=== PATIENT | female | born 1955 | race Caucasian/White ===

== ENCOUNTER → 2017-05-13 | Outpatient (CLI) | payer BC ==
--- NOTE | 2017-05-13 09:47 | US ---
EXAMINATION TYPE: US abdomen complete DATE OF EXAM: 05/13/2017 COMPARISON: CT abdomen and pelvis October 24, 2008 CLINICAL HISTORY: R74.0 TRANSAMINITIS,R10.12 LUQ PAIN,R21 RASH. Elevated enzymes. Hx of renal cysts. GB removed 2007 EXAM MEASUREMENTS: Liver Length: 15.7 cm CHD: 0.3 cm CBD: 0.2 cm Spleen: 10.0 cm Right Kidney: 10.6 x 4.6 x 4.9 cm Left Kidney: 11.1 x 4.2 x 5.2 cm Pancreas: wnl Liver: wnl Gallbladder: Surgically absent Evidence for sonographic Thacker's sign: neg CBD: wnl CHD: wnl Spleen: wnl Right Kidney: Multiple cystic appearing lesions seen. Mid- 1.1 x 1.2 x 0.9 cm. Lower- 4.1 x 4.6 x 3 .0 cm Left Kidney: Multiple lesions seen. Mid cystic lesion = 1.6 x 1.7 x 1.7 cm. Upper pole echogenic l esion, nonvascular = 2.2 x 1.6 x 1.8 cm Upper IVC: wnl Abd Aorta: no AAA seen The liver is homogenous. The intrahepatic portion of the IVC and proximal abdominal aorta are within normal limits. There is no evidence of cholelithiasis. Common bile duct is unremarkable. The visu alized portions of the pancreas are homogenous. The spleen is unremarkable. Kidneys are symmetric a nd free of hydronephrosis. Several simple appearing cysts are redemonstrated scattered throughout bot h kidneys. Technologist towards end of study marked thinning nonspecific poorly visualized hyperechoi c area, worrisome solid mass is felt extremely unlikely on images saved. IMPRESSION: No significant new finding is seen to account for patient's symptoms.
== END | disposition home or self-care (01) ==
LOC: RADUSWWP 08:12
PROVIDERS: ATTEND Internal Medicine
DX: R10.12 Left upper quadrant pain (principal); R74.0 Nonspecific elevation of levels of transaminase and lactic acid dehydrogenase [LDH]; R21 Rash and other nonspecific skin eruption
CPT/HCPCS: 76700

== ENCOUNTER → 2017-05-27 | Outpatient (CLI) | payer BC ==
--- NOTE | 2017-05-27 13:54 | MM ---
Reason for exam: screening (asymptomatic). Last mammogram was performed 1 year and 1 month ago. History: Patient is postmenopausal. Family history of breast cancer in aunt at age 40. Took progesterone for 4 months. Taking unspecified hormones for 5 years 11 months. Physical Findings: A clinical breast exam by your physician is recommended on an annual basis and results should be correlated with mammographic findings. MG 3D Screening Mammo W/Cad Bilateral CC and MLO view(s) were taken. Prior study comparison: April 23, 2016, bilateral MG 3d screening mammo w/cad. April 21, 2015, bilateral MG screening mammo w CAD. The breast tissue is heterogeneously dense. This may lower the sensitivity of mammography. Stable benign calcifications. Focal asymmetry central upper right breast posterior third position. This finding is changed when compared with previous exams. ASSESSMENT: Incomplete: need additional imaging evaluation, BI-RAD 0 RECOMMENDATION: Special view mammogram of the right breast. If lesion persists on supplemental views, image directed ultrasound is recommended. [facility] will attempt to contact patient to return for supplemental views and ultrasound if indicated.
--- NOTE | 2017-05-28 09:23 | WWHP ---
CHIEF COMPLAINT: The patient is here for her routine gynecologic exam and mammogram. HPI: This is a 61-year-old G2, P2 with an LMP of 2009. She states it has been about 3-years since her last pelvic exam. She is without gynecologic complaints and denies any postmenopausal bleeding. PAST MEDICAL HISTORY: Hypothyroidism following partial thyroidectomy for Gail's and occasional migraine headaches. MEDICATIONS: Levoxyl 112 mcg daily, Zolmitriptan 2.5 mg p.r.n. for headaches. ALLERGIES: DOXYCYCLINE, which caused nausea and body aches. PAST SURGICAL HISTORY: Urethral sling procedure in 2010, cholecystectomy in 2008 and right lobe of the thyroid gland removed in 2000. PAST OB HISTORY: Two vaginal deliveries. PAST INSET CUTTER HISTORY: She has no history of STDs and has been menopausal since 2009. SOCIAL HISTORY: She denies tobacco and drug use and has one to two alcoholic drinks per week. 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 FAMILY HISTORY: Unremarkable. She denies family history of cancer of the breast, uterus, ovaries, and colon. REVIEW OF SYSTEMS: Weight has been stable. She denies respiratory, cardiac, or GI problems. PHYSICAL EXAM: Blood pressure 119/76, height 5 feet 3 inches, weight 125 pounds. Temperature 96.1, pulse 68. This is a well developed, well nourished white female who is alert and oriented x3 in no acute distress. HEENT is within normal limits. Neck is supple without mass or thyromegaly. Chest and lungs clear to auscultation. Heart: Regular rate and rhythm. Breasts are without mass or discharge. Axillary exam is negative for adenopathy. Back negative for CVA tenderness. Abdomen is soft, nontender without palpable masses. Pelvic exam: External genitalia reveals mild atrophy without lesions. Cervix and vagina reveals mild atrophy without lesions. There is no evidence of prolapse. The uterus is mid-position, nongravid size and nontender. There are no palpable adnexal masses or tenderness. Rectovaginal exam is negative for mass or tenderness and is negative for occult blood. Extremities are nontender. IMPRESSION: A 61-year-old menopausal female with normal gynecologic exam. PLAN: 1. PAP smear was performed. 2. Self breast examination was discussed. 3. Mammogram will be done today. 4. Osteoporosis prevention was discussed. I have recommended bone density testing since it has been about 10 years since her last one. She states she will do this next year. 5. She will return in one year. ALEXANDRU
== END ==
LOC: WWCWWP 09:41
PROVIDERS: ATTEND Obstetrics & Gynecology
DX: Z12.31 Encounter for screening mammogram for malignant neoplasm of breast (principal)
CPT/HCPCS: 77063; G0202

== ENCOUNTER → 2017-06-05 | Outpatient (CLI) | payer BC ==
--- NOTE | 2017-06-09 08:52 | MM ---
Reason for exam: additional evaluation requested from abnormal screening. Last mammogram was performed less than 1 month ago. History: Patient is postmenopausal. Family history of breast cancer in aunt at age 40. Took estrogen for 4 months. Physical Findings: Nurse did not find any significant physical abnormalities on exam. MG 3D Work Up W/Cad RT CC, MLO, ML, spot compression MLO, and spot compression CC view(s) were taken of the right breast. Prior study comparison: May 27, 2017, bilateral MG 3d screening mammo w/cad. April 23, 2016, bilateral MG 3d screening mammo w/cad. April 21, 2015, bilateral MG screening mammo w CAD. The breast tissue is heterogeneously dense. This may lower the sensitivity of mammography. The previously described findings resolve on spot compression, 3D and calcifications stable from priors. These results were verbally communicated with the patient and result sheet given to the patient on 06/05/17. ASSESSMENT: Benign, BI-RAD 2 RECOMMENDATION: Return to routine screening mammogram schedule for both breasts.
== END | disposition home or self-care (01) ==
LOC: RADMAMWWP 13:21
PROVIDERS: ATTEND Obstetrics & Gynecology
DX: R92.8 Other abnormal and inconclusive findings on diagnostic imaging of breast (principal)
CPT/HCPCS: G0206; G0279

== ENCOUNTER 2017-08-06 06:21 | Emergency (ER) | payer BC ==
[2017-08-06 06:29] VITALS: PULSE 77
[2017-08-06 07:22] LABS: Bacteria,Urine Rare /hpf; Mucus,Urine Many /hpf; Particle Count 46745; RBC,Urine >182 /hpf (0-5); Squamous Epithelial Cell,Urine 4 /hpf (0-4); WBC,Urine >182 /hpf (0-5)
[2017-08-06 07:25] LABS: Appearance,Urine Turbid (Clear); Bilirubin,Urine Negative (Negative); Glucose,Urine (UA) Negative (Negative); Ketones,Urine Negative (Negative); Leukocyte Esterase,Urine Large (Negative); Nitrite,Urine Negative (Negative); Protein,Urine 3+ (Negative); UA Billing (MACRO vs. MICRO) MICRO; Urobilinogen,Urine <2.0 mg/dL (<2.0)
[2017-08-06 07:30] LABS: Specific Gravity,Urine 1.025 (1.001-1.035)
--- NOTE | 2017-08-06 07:43 | ED ---
General Adult HPI - General Chief complaint: Urogenital Stated complaint: UTI Time Seen by Provider: 08/06/17 07:29 Source: patient, RN notes reviewed Mode of arrival: ambulatory Limitations: no limitations - History of Present Illness Initial comments: Patient is a pleasant 62-year-old female presenting to the emergency department complaining of dysuria. Onset of symptoms was yesterday morning. Symptoms seemed to improve but worsen again in the middle the night. Patient has dysuria. Patient has urinary frequency and mild suprapubic pressure. No back pain. No fever. No nausea or vomiting. - Related Data Home Medications Medication Instructions Recorded Confirmed Levothyroxine Sodium [Synthroid] 112 mcg PO DAILY 08/06/17 08/06/17 Previous Rx's Medication Instructions Recorded Sulfamethox-Tmp 800-160Mg [Bactrim 1 each PO Q12HR #20 tab 08/06/17 DS 800-160 mg] Allergies Allergy/AdvReac Type Severity Reaction Status Date / Time doxycycline Allergy Swelling Verified 08/06/17 06:30 Review of Systems ROS Statement: Those systems with pertinent positive or pertinent negative responses have been documented in the HPI. ROS Other: All systems not noted in ROS Statement are negative. Constitutional: Denies: fever, chills Eyes: Denies: eye pain ENT: Denies: ear pain Respiratory: Denies: cough Cardiovascular: Denies: chest pain Endocrine: Denies: fatigue Gastrointestinal: Denies: nausea, vomiting Genitourinary: Reports: urgency, dysuria, frequency, hematuria Musculoskeletal: Denies: back pain Skin: Denies: rash Neurological: Denies: weakness Past Medical History Past Medical History: No Reported History History of Any Multi-Drug Resistant Organisms: None Reported Past Surgical History: Cholecystectomy Additional Past Surgical History / Comment(s): bladder sling 2014, partial thyroidectomy Past Psychological History: No Psychological Hx Reported Smoking Status: Never smoker Past Alcohol Use History: Occasional Past Drug Use History: None Reported General Exam Limitations: no limitations General appearance: alert, in no apparent distress Head exam: Present: atraumatic Eye exam: Present: normal appearance, PERRL ENT exam: Present: normal oropharynx Neck exam: Present: normal inspection Respiratory exam: Present: normal lung sounds bilaterally Cardiovascular Exam: Present: regular rate, normal rhythm Expanded Peripheral pulses: 2+: Dorsalis Pedis (R), Dorsalis Pedis (L) GI/Abdominal exam: Present: soft. Absent: distended, tenderness, pulsatile mass Extremities exam: Present: normal inspection Neurological exam: Present: alert Psychiatric exam: Present: normal affect, normal mood Skin exam: Present: normal color Course Vital Signs 08/06/17 06:25 Temperature 97.6 F Pulse Rate 77 Respiratory 18 Rate Blood Pressure 142/75 O2 Sat by Pulse 97 Oximetry Medical Decision Making - Lab Data Lab Results 08/06/17 Range/Units 06:30 Urine Color Light Red Urine Appearance Turbid H (Clear) Urine pH 6.0 (5.0-8.0) Ur Specific [place] 1.025 (1.001-1.035) Urine Protein 3+ H (Negative) Urine Glucose (UA) Negative (Negative) Urine Ketones Negative (Negative) Urine Blood Large H (Negative) Urine Nitrite Negative (Negative) Urine Bilirubin Negative (Negative) Urine Urobilinogen <2.0 (<2.0) mg/dL Ur Leukocyte Esterase Large H (Negative) Urine RBC >182 H (0-5) /hpf Urine WBC >182 H (0-5) /hpf Urine WBC Clumps Many H (None) /hpf Ur Squamous Epith Cells 4 (0-4) /hpf Urine Bacteria Rare H (None) /hpf Urine Mucus Many H (None) /hpf Urine Yeast (Budding) (None) /hpf Disposition Clinical Impression: Urinary tract infection Disposition: HOME SELF-CARE Condition: Stable Instructions: Urinary Tract Infection in Women (ED) Additional Instructions: Please follow-up to primary care physician in the next couple of days for recheck. Have primary care physician check urine culture results. Return for fever, vomiting, increased pain, worsening symptoms or other concerns. Prescriptions: Sulfamethox-Tmp 800-160Mg [Bactrim DS 800-160 mg] 1 each PO Q12HR #20 tab Referrals: Jeff Sin MD [Primary Care Provider] - 1-2 days Time of Disposition: 07:42
[2017-08-06 07:50] VITALS: BP 105/71; RESP 17; TEMP 97.1
== END 2017-08-06 07:57 | disposition home or self-care (01) ==
LOC: EC 06:21
DX: N39.0 Urinary tract infection, site not specified (principal); Z90.89 Acquired absence of other organs; Z90.49 Acquired absence of other specified parts of digestive tract; Z79.899 Other long term (current) drug therapy; Z88.1 Allergy status to other antibiotic agents
CPT/HCPCS: 81001; 87086; 99283

== ENCOUNTER → 2018-04-03 | Outpatient (CLI) | payer BC ==
[2018-04-03 07:37] LABS: Basophils % (A) 0 %; Eosinophils # (A) 0.2 k/uL (0-0.7); Eosinophils % (A) 3 %; HCT 38.1 % (34.0-46.0); HGB 12.8 gm/dL (11.4-16.0); Lymphocytes # (A) 1.2 k/uL (1.0-4.8); Lymphocytes % (A) 14 %; MCH 31.6 pg (25.0-35.0); MCHC 33.6 g/dL (31.0-37.0); MCV 94.2 fL (80.0-100.0); Mean Platelet Volume 7.3; Monocytes # (A) 0.5 k/uL (0-1.0); Monocytes % (A) 5 %; Neutrophils # (A) 6.6 k/uL (1.3-7.7); Neutrophils % (A) 76 %; Platelet Count 218 k/uL (150-450); RBC 4.05 m/uL (3.80-5.40); RDW 13.1 % (11.5-15.5); WBC 8.7 k/uL (3.8-10.6)
[2018-04-03 11:53] LABS: ALT 50 U/L (9-52); AST 43 U/L (14-36); Albumin 4.1 g/dL (3.5-5.0); Alkaline Phosphatase 75 U/L (38-126); Anion Gap 11 mmol/L; Blood Urea Nitrogen 23 mg/dL (7-17); Carbon Dioxide 26 mmol/L (22-30); Chloride 107 mmol/L (98-107); Cholesterol 136 mg/dL (<200); Glucose 88 mg/dL (74-99); HDL Cholesterol 72 mg/dL (40-60); LDL Cholesterol,Calculated 41 mg/dL (0-99); Potassium 4.4 mmol/L (3.5-5.1); Sodium 144 mmol/L (137-145); Total Bilirubin 0.2 mg/dL (0.2-1.3); Total Protein 6.6 g/dL (6.3-8.2); Triglycerides 117 mg/dL (<150)
[2018-04-03 12:10] LABS: T4, Free (Free Thyroxine) 1.04 ng/dL (0.78-2.19)
== END | disposition home or self-care (01) ==
LOC: LABWHC1 06:49
PROVIDERS: ATTEND Internal Medicine
DX: Z00.00 Encounter for general adult medical examination without abnormal findings (principal); E03.9 Hypothyroidism, unspecified
CPT/HCPCS: 36415; 80053; 80061; 84439; 84443; 84481; 85025

== ENCOUNTER → 2018-07-15 | Outpatient (CLI) | payer BC ==
--- NOTE | 2018-07-17 08:39 | MM ---
Reason for exam: screening (asymptomatic). Last mammogram was performed 1 year and 1 month ago. History: Patient is postmenopausal. Family history of breast cancer in aunt at age 40. Took estrogen for 4 months. Physical Findings: A clinical breast exam by your physician is recommended on an annual basis and results should be correlated with mammographic findings. MG 3D Screening Mammo W/Cad Bilateral CC and MLO view(s) were taken. Prior study comparison: June 05, 2017, right breast MG 3d work up w/cad RT. May 27, 2017, bilateral MG 3d screening mammo w/cad. The breast tissue is heterogeneously dense. This may lower the sensitivity of mammography. Despite being worked up last year asymmetric density central posterior right MLO view continues to look more defined with 3D suggesting possible underlying nodularity. ASSESSMENT: Incomplete: need additional imaging evaluation, BI-RAD 0 RECOMMENDATION: Special view mammogram of the right breast. If lesion persists on supplemental views, image directed ultrasound is recommended. [facility] will attempt to contact patient to return for supplemental views and ultrasound if indicated.
== END | disposition home or self-care (01) ==
LOC: RADMAMWWP 13:44
PROVIDERS: ATTEND Internal Medicine
DX: Z12.31 Encounter for screening mammogram for malignant neoplasm of breast (principal)
CPT/HCPCS: 77063; 77067

== ENCOUNTER → 2018-08-03 | Outpatient (CLI) | payer BC ==
--- NOTE | 2018-08-03 12:01 | MM ---
Reason for exam: additional evaluation requested from abnormal screening. Last mammogram was performed 1 month ago. History: Patient is postmenopausal. Family history of breast cancer in aunt at age 40. Took estrogen for 4 months. Physical Findings: Nurse did not find any significant physical abnormalities on exam. MG 3D Work Up W/Cad RT Spot compression CC, spot compression MLO, and LM view(s) were taken of the right breast. Prior study comparison: July 15, 2018, bilateral MG 3d screening mammo w/cad. June 05, 2017, right breast MG 3d work up w/cad RT. There is no discrete abnormality including area of concern. Stable benign calcifications. These results were verbally communicated with the patient and result sheet given to the patient on 08/03/18. ASSESSMENT: Benign, BI-RAD 2 RECOMMENDATION: Return to routine screening mammogram schedule for both breasts.
== END | disposition home or self-care (01) ==
LOC: RADMAMWWP 10:48
PROVIDERS: ATTEND Internal Medicine
DX: R92.8 Other abnormal and inconclusive findings on diagnostic imaging of breast (principal)
CPT/HCPCS: 77061; 77065

== ENCOUNTER → 2019-01-08 | Outpatient (CLI) | payer BC ==
--- NOTE | 2019-01-08 08:30 | US ---
EXAMINATION TYPE: US kidneys/renal and bladder DATE OF EXAM: 01/08/2019 COMPARISON: US CLINICAL HISTORY: R10.32 Left lower quadrant pain. Pt states recurrent UTI's EXAM MEASUREMENTS: Right Kidney: 11.0 x 4.0 x 4.8 cm Left Kidney: 12.2 x 5.5 x 4.5 cm Right Kidney: Cyst mid/medial= 4.2 x 3.7 x 4.1 cm, seen on previous Left Kidney: Echogenic, solid lesion upper pole= 2.3 x 1.6 x 1.9 cm/ Cyst mid= 2.5 x 2.1 x 2.3 cm, lis th lesions seen on previous Bladder: wnl Bilateral Jets seen: Yes No hydronephrosis or nephrolithiasis. IMPRESSION: There is minimally mental increase in size of a 2.3 cm echogenic lesion involving the upper pole the left kidney. This appears solid. Angiomyolipoma in the differential diagnosis although other etiologi es not excluded. Correlate with CT scan recommended. Bilateral renal simple appearing cysts are stable.
== END | disposition home or self-care (01) ==
LOC: RADUSWWP 07:25
PROVIDERS: ATTEND Family Medicine
DX: N28.1 Cyst of kidney, acquired (principal); D17.71 Benign lipomatous neoplasm of kidney
CPT/HCPCS: 76770

== ENCOUNTER → 2019-08-31 | Outpatient (CLI) | payer BC ==
--- NOTE | 2019-09-01 10:37 | MM ---
Reason for exam: screening (asymptomatic). Last mammogram was performed 1 year and 1 month ago. History: Patient is postmenopausal. Family history of breast cancer in maternal aunt at age 40 and breast cancer in paternal aunt at age 40. Took estrogen for 4 months. Physical Findings: A clinical breast exam by your physician is recommended on an annual basis and results should be correlated with mammographic findings. MG 3D Screening Mammo W/Cad Bilateral CC and MLO view(s) were taken. Prior study comparison: August 03, 2018, right breast MG 3d work up w/cad RT. July 15, 2018, bilateral MG 3d screening mammo w/cad. The breast tissue is heterogeneously dense. This may lower the sensitivity of mammography. There are similar right calcifications. No suspicious abnormality. No significant changes when compared with prior studies. ASSESSMENT: Benign, BI-RAD 2 RECOMMENDATION: Routine screening mammogram of both breasts in 1 year.
== END ==
LOC: RADMAMWWP 08:10
PROVIDERS: ATTEND Family Medicine
DX: Z12.39 Encounter for other screening for malignant neoplasm of breast (principal)
CPT/HCPCS: 77063; 77067

== ENCOUNTER → 2020-06-21 | Outpatient (CLI) | payer BC | END | disposition home or self-care (01) | LOC: LABWHC1 10:08 | PROVIDERS: ATTEND Physician Assistant | DX: Z09 Encounter for follow-up examination after completed treatment for conditions other than malignant neoplasm (principal); Z87.2 Personal history of diseases of the skin and subcutaneous tissue | CPT/HCPCS: 36415; 86038 ==

== ENCOUNTER 2020-06-22 00:15 | Emergency (ER) | payer BC ==
[2020-06-22 00:23] VITALS: RESP 16
[2020-06-22] MEDS ORDERED: MORPHINE SULFATE 4 MG/ML SYRINGE IV STA (00:36)
[2020-06-22] MEDS ORDERED: ONDANSETRON 4 MG/2 ML VIAL IVP STA (00:36)
[2020-06-22] MEDS ORDERED: SODIUM CHLORIDE 0.9% 1,000 ML IV ONE (00:41)
--- NOTE | 2020-06-22 00:41 | ED ---
Abdominal Pain HPI - General Chief Complaint: Abdominal Pain Stated Complaint: Abd pain Time Seen by Provider: 06/22/20 00:21 Source: patient, EMS Mode of arrival: EMS Limitations: no limitations - History of Present Illness Initial Comments: This patient is a 64-year-old woman who presents to be evaluated for abdominal pain, nausea and vomiting. The patient states that the pain and nausea started about 12 hours ago. She relates that she had some shrimp tenisha for dinner last night and then this morning had eaten the remnants of the meal. She states that a little after that she noticed she was having umbilical cramping/burning pains. She then was having nausea and subsequently has had about 6 episodes of vomiting. With the last couple of episodes she has had some coffee-ground emesis. No bright red blood. The patient has not noted worsening or relieving factors. No change in bowel movements. No change in urination. Patient denies symptoms of anemia. There is no chest pain, dyspnea, lightheadedness, syncope, palpitations. MD Complaint: abdominal pain Onset/Timin -: hour(s) Location: periumbilical Radiation: none Severity: moderate Quality: cramping Consistency: intermittent Improves With: nothing Worsens With: nothing Associated Symptoms: nausea, vomiting, hematemesis - Related Data Home Medications Medication Instructions Recorded Confirmed Levothyroxine Sodium [Synthroid] 112 mcg PO DAILY 08/06/17 08/06/17 Multivitamins, Thera [Multivitamin 1 tab PO DAILY 08/06/17 08/06/17 (formulary)] Previous Rx's Medication Instructions Recorded Sulfamethox-Tmp 800-160Mg [Bactrim 1 each PO Q12HR #20 tab 08/06/17 DS 800-160 mg] Dicyclomine [Bentyl] 20 mg PO QID #15 tablet 06/22/20 Ondansetron Odt [Zofran ODT] 4 mg PO Q8HR PRN #10 tab 06/22/20 Allergies Allergy/AdvReac Type Severity Reaction Status Date / Time doxycycline AdvReac headache & Verified 06/22/20 00:23 vomiting Review of Systems ROS Statement: Those systems with pertinent positive or pertinent negative responses have been documented in the HPI. ROS Other: All systems not noted in ROS Statement are negative. Constitutional: Denies: fever, chills Respiratory: Denies: cough, dyspnea Cardiovascular: Denies: chest pain, palpitations, syncope Gastrointestinal: Reports: abdominal pain, nausea, vomiting, hematemesis. Denies: diarrhea, melena, hematochezia Genitourinary: Denies: dysuria, hematuria Musculoskeletal: Denies: back pain Skin: Denies: rash Neurological: Denies: headache, weakness, numbness Past Medical History Past Medical History: No Reported History History of Any Multi-Drug Resistant Organisms: None Reported Past Surgical History: Cholecystectomy Additional Past Surgical History / Comment(s): bladder sling 2014, partial thyroidectomy Past Psychological History: No Psychological Hx Reported Smoking Status: Never smoker Past Alcohol Use History: Occasional Past Drug Use History: None Reported General Exam Limitations: no limitations General appearance: alert, in no apparent distress Head exam: Present: atraumatic, normocephalic Eye exam: Present: normal appearance. Absent: scleral icterus, conjunctival injection ENT exam: Present: normal oropharynx Neck exam: Present: normal inspection Respiratory exam: Present: normal lung sounds bilaterally. Absent: respiratory distress, wheezes, rales, rhonchi, stridor Cardiovascular Exam: Present: regular rate, normal rhythm, normal heart sounds. Absent: systolic murmur, diastolic murmur, rubs, gallop GI/Abdominal exam: Present: soft, normal bowel sounds. Absent: distended, tenderness, guarding, rebound, rigid, mass, pulsatile mass, hernia Extremities exam: Present: normal inspection, normal capillary refill. Absent: pedal edema, calf tenderness Back exam: Present: normal inspection. Absent: CVA tenderness (R), CVA tenderness (L) Neurological exam: Present: alert Skin exam: Present: warm, dry, intact, normal color. Absent: rash Course Vital Signs 06/22/20 00:19 Temperature 98.0 F Pulse Rate 71 Respiratory 16 Rate Blood Pressure 129/75 O2 Sat by Pulse 99 Oximetry Medical Decision Making - Medical Decision Making On reevaluation, the patient stated that she did have an episode of diarrhea here, and noted that her symptoms were improving. The abdominal exam is benign there is no tenderness. The patient states she is feeling somewhat better she would like to go home now. No further nausea or vomiting. We did discuss the return parameters and appropriate further care and follow-up. - Lab Data Result diagrams: 06/22/20 00:40 06/22/20 00:40 Lab Results 06/22/20 06/22/20 Range/Units 00:40 00:40 WBC 13.0 H (3.8-10.6) k/uL RBC 4.56 (3.80-5.40) m/uL Hgb 14.1 (11.4-16.0) gm/dL Hct 41.9 (34.0-46.0) % MCV 91.8 (80.0-100.0) fL MCH 31.0 (25.0-35.0) pg MCHC 33.8 (31.0-37.0) g/dL RDW 12.5 (11.5-15.5) % Plt Count 223 (150-450) k/uL Neutrophils % 86 % Lymphocytes % 8 % Monocytes % 4 % Eosinophils % 1 % Basophils % 0 % Neutrophils # 11.2 H (1.3-7.7) k/uL Lymphocytes # 1.0 (1.0-4.8) k/uL Monocytes # 0.5 (0-1.0) k/uL Eosinophils # 0.2 (0-0.7) k/uL Basophils # 0.0 (0-0.2) k/uL Sodium 137 (137-145) mmol/L Potassium 4.5 (3.5-5.1) mmol/L Chloride 101 (98-107) mmol/L Carbon Dioxide 23 (22-30) mmol/L Anion Gap 13 mmol/L BUN 22 H (7-17) mg/dL Creatinine 0.58 (0.52-1.04) mg/dL Est GFR (CKD-EPI)AfAm >90 (>60 ml/min/1.73 sqM) Est GFR (CKD-EPI)NonAf >90 (>60 ml/min/1.73 sqM) Glucose 199 H (74-99) mg/dL Calcium 10.4 H (8.4-10.2) mg/dL Total Bilirubin 0.7 (0.2-1.3) mg/dL AST 56 H (14-36) U/L ALT 48 H (4-34) U/L Alkaline Phosphatase 104 (38-126) U/L Total Protein 8.4 H (6.3-8.2) g/dL Albumin 5.2 H (3.5-5.0) g/dL Amylase 104 (30-110) U/L Lipase 203 (23-300) U/L Disposition Clinical Impression: Gastroenteritis Disposition: HOME SELF-CARE Condition: Good Instructions (If sedation given, give patient instructions): Gastroenteritis (ED) Prescriptions: Dicyclomine [Bentyl] 20 mg PO QID #15 tablet Ondansetron Odt [Zofran ODT] 4 mg PO Q8HR PRN #10 tab PRN Reason: Nausea Is patient prescribed a controlled substance at d/c from ED?: No Referrals: Gomez Alcazar MD [Primary Care Provider] - 1-2 days
[2020-06-22] MEDS ORDERED: DICYCLOMINE 10 MG/ML 2 ML AMP IM STA (00:51)
[2020-06-22 00:58] LABS: Basophils % (A) 0 %; Eosinophils # (A) 0.2 k/uL (0-0.7); Eosinophils % (A) 1 %; HCT 41.9 % (34.0-46.0); HGB 14.1 gm/dL (11.4-16.0); Lymphocytes % (A) 8 %; MCHC 33.8 g/dL (31.0-37.0); MCV 91.8 fL (80.0-100.0); Mean Platelet Volume 9.4; Monocytes # (A) 0.5 k/uL (0-1.0); Monocytes % (A) 4 %; Neutrophils # (A) 11.2 k/uL (1.3-7.7); Neutrophils % (A) 86 %; Platelet Count 223 k/uL (150-450); RBC 4.56 m/uL (3.80-5.40); RDW 12.5 % (11.5-15.5)
[2020-06-22 01:27] LABS: ALT 48 U/L (4-34); African American GFR (CKD) >90 (>60 ml/min/1.73 sqM); Albumin 5.2 g/dL (3.5-5.0); Amylase 104 U/L (30-110); Anion Gap 13 mmol/L; Blood Urea Nitrogen 22 mg/dL (7-17); Calcium 10.4 mg/dL (8.4-10.2); Carbon Dioxide 23 mmol/L (22-30); Chloride 101 mmol/L (98-107); Glucose 199 mg/dL (74-99); Non-African American GFR(CKD) >90 (>60 ml/min/1.73 sqM); Sodium 137 mmol/L (137-145); Total Bilirubin 0.7 mg/dL (0.2-1.3); Total Protein 8.4 g/dL (6.3-8.2)
[2020-06-22 01:29] LABS: AST 56 U/L (14-36); Alkaline Phosphatase 104 U/L (38-126); Potassium 4.5 mmol/L (3.5-5.1)
[2020-06-22 02:33] VITALS: BP 109/68; PULSE 77; TEMP 98.7
== END 2020-06-22 02:33 | disposition home or self-care (01) ==
LOC: EC 00:15
DX: K52.9 Noninfective gastroenteritis and colitis, unspecified (principal); Z88.1 Allergy status to other antibiotic agents; Z90.49 Acquired absence of other specified parts of digestive tract
CPT/HCPCS: 99284; 96374; 96361; 36415; 80053; 82150; 83690; 85025; J2405

== ENCOUNTER → 2020-08-30 | Outpatient (CLI) | payer BC ==
--- NOTE | 2020-08-30 12:14 | CT ---
EXAMINATION TYPE: CT abdomen pelvis wo con DATE OF EXAM: 08/30/2020 HISTORY: Abdominal pain unspecified. CT DLP: 494 mGycm. Automated Exposure Control for Dose Reduction was Utilized. TECHNIQUE: CT scan of the abdomen and pelvis is performed without oral or IV contrast. COMPARISON: MRI kidney July 25, 2010 FINDINGS: Within the limitations of a non-contrast study, the following observations are made. LUNG BASES: No significant abnormality is appreciated. LIVER/GB: Gallbladder redemonstrated surgically absent. PANCREAS: Single 3 mm calcification in the distal pancreatic body. SPLEEN: No significant abnormality is seen. ADRENALS: No significant abnormality is seen. KIDNEYS: Simple appearing thin-walled cysts are redemonstrated scattered throughout both kidneys. No renal stones or hydronephrosis is evident bilaterally. BOWEL: No suspicious small or large bowel dilatation. GENITAL ORGANS: Anteverted uterus. LYMPH NODES: No greater than 1cm abdominal or pelvic lymph nodes are appreciated. OSSEOUS STRUCTURES: Straightening of spine with moderate disc space narrowing L2-L3 and L3-L4 levels. OTHER: Small fat-containing umbilical hernia. IMPRESSION: No new or acute findings are evident.
== END | disposition home or self-care (01) ==
LOC: RADCTMAIN 11:43
PROVIDERS: ATTEND Family Medicine
DX: R10.9 Unspecified abdominal pain (principal)
CPT/HCPCS: 74176

== ENCOUNTER 2020-12-12 17:08 | Inpatient (IN) | payer BC, MEDICARE ==
[2020-12-12] MEDS ORDERED: KETOROLAC 15 MG/ML 1 ML VIAL IVP STA (17:28)
[2020-12-12] MEDS ORDERED: DICYCLOMINE 10 MG/ML 2 ML AMP IM STA (17:28)
[2020-12-12 17:42] LABS: Basophils % (A) 0 %; Eosinophils # (A) 0.1 k/uL (0-0.7); Eosinophils % (A) 1 %; HCT 42.8 % (34.0-46.0); HGB 14.7 gm/dL (11.4-16.0); Lymphocytes % (A) 9 %; MCH 32.2 pg (25.0-35.0); MCHC 34.4 g/dL (31.0-37.0); MCV 93.7 fL (80.0-100.0); Monocytes # (A) 0.5 k/uL (0-1.0); Monocytes % (A) 5 %; Neutrophils # (A) 9.2 k/uL (1.3-7.7); Neutrophils % (A) 84 %; Platelet Count 176 k/uL (150-450); RBC 4.57 m/uL (3.80-5.40); WBC 10.9 k/uL (3.8-10.6)
[2020-12-12 17:52] LABS: ALT 25 U/L (4-34); AST 35 U/L (14-36); African American GFR (CKD) >90 (>60 ml/min/1.73 sqM); Albumin 4.8 g/dL (3.5-5.0); Alkaline Phosphatase 90 U/L (38-126); Anion Gap 13 mmol/L; Blood Urea Nitrogen 16 mg/dL (7-17); Calcium 9.9 mg/dL (8.4-10.2); Carbon Dioxide 21 mmol/L (22-30); Chloride 104 mmol/L (98-107); Glucose 184 mg/dL (74-99); Lipase 198 U/L (23-300); Magnesium 1.9 mg/dL (1.6-2.3); Non-African American GFR(CKD) >90 (>60 ml/min/1.73 sqM); Potassium 3.8 mmol/L (3.5-5.1); Sodium 138 mmol/L (137-145); Total Bilirubin 0.6 mg/dL (0.2-1.3); Total Protein 7.8 g/dL (6.3-8.2)
[2020-12-12 17:59] LABS: INR 0.9 (<1.2); Partial Thromboplastin Time 22.3 sec (22.0-30.0); Prothrombin Time 10.2 sec (9.0-12.0)
[2020-12-12 18:24] LABS: Appearance,Urine Clear (Clear); Bilirubin,Urine Negative (Negative); Blood,Urine Negative (Negative); Color,Urine Yellow; Glucose,Urine (UA) Negative (Negative); Ketones,Urine 4+ (Negative); Leukocyte Esterase,Urine Negative (Negative); Nitrite,Urine Negative (Negative); PH, Urine 8.5 (5.0-8.0); Protein,Urine Trace (Negative); Specific Gravity,Urine 1.018 (1.001-1.035); Urobilinogen,Urine <2.0 mg/dL (<2.0)
--- NOTE | 2020-12-12 18:42 | CT ---
EXAMINATION TYPE: CT abdomen pelvis w con DATE OF EXAM: 12/12/2020 COMPARISON: 08/22/2020. HISTORY: abdominal pain CT DLP: 535.8 mGycm Automated exposure control for dose reduction was used. TECHNIQUE: Helical acquisition of images was performed from the lung bases through the pelvis. CONTRAST: Performed without Oral Contrast and with IV Contrast, patient injected with 100 mL of Isovue 300. FINDINGS: LUNG BASES: No significant abnormality is appreciated. LIVER/GB: No acute abnormality is appreciated. Cholecystectomy is seen. PANCREAS: No significant abnormality is seen. SPLEEN: No significant abnormality is seen. ADRENALS: No significant abnormality is seen. KIDNEYS: No acute abnormality is seen. Multiple benign-appearing bilateral renal cysts with the large st measuring 4.1 cm. FREE AIR: No free air is visualized. RETROPERITONEAL ADENOPATHY: None visualized REPRODUCTIVE ORGANS: No significant abnormality is seen URINARY BLADDER: No significant abnormality is seen. PELVIC ADENOPATHY: None visualized. OSSEOUS STRUCTURES: No significant abnormality is seen. BOWEL: Multiple dilated small bowel loops throughout the abdomen. Transition point is seen in the mi d lower abdomen. No free air or fluid. No acute appendicitis OTHER: None. IMPRESSION: MODERATE TO HIGH-GRADE PARTIAL SMALL BOWEL OBSTRUCTION, POSSIBLY DUE TO ADHESION.
[2020-12-12] MEDS ORDERED: SODIUM CHLORIDE 0.9% 2,000 ML IV ONE (19:01)
[2020-12-12] MEDS ORDERED: MORPHINE SULFATE 4 MG/ML SYRINGE IV PRN (19:06)
[2020-12-12] MEDS ORDERED: NALOXONE 0.4 MG/ML 1 ML VIAL IV PRN (19:06)
[2020-12-12] MEDS ORDERED: ONDANSETRON 4 MG/2 ML VIAL IVP PRN (19:06)
[2020-12-12] MEDS ORDERED: metroNIDAZOLE-NS PMX 500 MG in SALINE 1 100ML.BAG IVPB STA (19:11)
--- NOTE | 2020-12-12 19:11 | ED ---
Abdominal Pain HPI - General Chief Complaint: Abdominal Pain Stated Complaint: ABD pain Time Seen by Provider: 12/12/20 17:15 Source: EMS Mode of arrival: EMS Limitations: no limitations - History of Present Illness Initial Comments: This is a 65-year-old female who presents emergent department for abdominal pain. She states that she was driving when it suddenly started in the middle of her abdomen. She states that it feels like a cramping sensation with some associated nausea and vomiting. She states that she's had this previously however the etiology was not determined. She denies any constipation or diarrhea. She states that she does have a history of cholecystectomy in the remote past. Denies any fevers or chills. No chest pain or trouble breathing. No other complaints. - Related Data Home Medications Medication Instructions Recorded Confirmed Levothyroxine Sodium [Synthroid] 112 mcg PO DAILY 08/06/17 08/06/17 Multivitamins, Thera [Multivitamin 1 tab PO DAILY 08/06/17 08/06/17 (formulary)] Previous Rx's Medication Instructions Recorded Sulfamethox-Tmp 800-160Mg [Bactrim 1 each PO Q12HR #20 tab 08/06/17 DS 800-160 mg] Dicyclomine [Bentyl] 20 mg PO QID #15 tablet 06/22/20 Ondansetron Odt [Zofran ODT] 4 mg PO Q8HR PRN #10 tab 06/22/20 Allergies Allergy/AdvReac Type Severity Reaction Status Date / Time doxycycline AdvReac headache & Verified 06/22/20 00:23 vomiting Review of Systems ROS Statement: Those systems with pertinent positive or pertinent negative responses have been documented in the HPI. ROS Other: All systems not noted in ROS Statement are negative. Past Medical History Past Medical History: No Reported History History of Any Multi-Drug Resistant Organisms: None Reported Past Surgical History: Cholecystectomy Additional Past Surgical History / Comment(s): bladder sling 2014, partial thyroidectomy Past Psychological History: No Psychological Hx Reported Smoking Status: Never smoker Past Alcohol Use History: Occasional Past Drug Use History: None Reported General Exam - General Exam Comments Initial Comments: Constitutional: [Awake alert] Appears uncomfortable Head: [Normocephalic atraumatic] Eyes: [no conjunctival injection] [No scleral icterus] [EOMI] Neck: [No JVD] [Supple] Heart: [Regular rate rhythm] [normal S1-S2] [no murmurs] Lungs: [Clear to auscultation bilaterally] [No wheezing] [No rales] Abdomen: [Soft] [nondistended] Tender throughout the abdomen without guarding or rebound Extremities: [Non edematous] [DP pulses intact] [Radial pulses intact] Neuro: [A&Ox3] [No focal neurologic deficits] Psych: [Appropriate mood and affect] . Limitations: no limitations Course Vital Signs 12/12/20 12/12/20 17:14 18:29 Temperature 98.0 F Pulse Rate 74 66 Respiratory 20 16 Rate Blood Pressure 125/67 118/68 O2 Sat by Pulse 100 100 Oximetry - Reevaluation(s) Reevaluation #1: EKG showing normal sinus rhythm with a rate of 73. There is no abnormal ST segment changes or T-wave inversions. QTC is 484. Other intervals normal. No ectopy. 12/12/20 19:09 Medical Decision Making - Medical Decision Making Is a 65-year-old female presents emergency department for abdominal pain. The patient was uncomfortable on arrival. She was given Bentyl and Zofran with improvement in her symptoms. Computed tomography scan showed evidence for high- grade partial small bowel obstruction. The patient has a history of cholecystectomy and was thought that this is likely due to adhesions. Patient did feel improved however I spoke with Dr. Gray who advised NG tube, antiemetics and pain medications as needed. IV antibiotics and fluids. He stated that he would see the patient tomorrow. He requested a consultation to Dr. Castro. Patient was updated on plan of care. All questions were answered. - Lab Data Result diagrams: 12/12/20 17:30 12/12/20 17:30 Lab Results 12/12/20 12/12/20 12/12/20 Range/Units 17:30 17:30 17:30 WBC 10.9 H (3.8-10.6) k/uL RBC 4.57 (3.80-5.40) m/uL Hgb 14.7 (11.4-16.0) gm/dL Hct 42.8 (34.0-46.0) % MCV 93.7 (80.0-100.0) fL MCH 32.2 (25.0-35.0) pg MCHC 34.4 (31.0-37.0) g/dL RDW 12.0 (11.5-15.5) % Plt Count 176 (150-450) k/uL MPV 9.0 Neutrophils % 84 % Lymphocytes % 9 % Monocytes % 5 % Eosinophils % 1 % Basophils % 0 % Neutrophils # 9.2 H (1.3-7.7) k/uL Lymphocytes # 1.0 (1.0-4.8) k/uL Monocytes # 0.5 (0-1.0) k/uL Eosinophils # 0.1 (0-0.7) k/uL Basophils # 0.0 (0-0.2) k/uL PT 10.2 (9.0-12.0) sec INR 0.9 (<1.2) APTT 22.3 (22.0-30.0) sec Sodium (137-145) mmol/L Potassium (3.5-5.1) mmol/L Chloride (98-107) mmol/L Carbon Dioxide (22-30) mmol/L Anion Gap mmol/L BUN (7-17) mg/dL Creatinine (0.52-1.04) mg/dL Est GFR (CKD-EPI)AfAm (>60 ml/min/1.73 sqM) Est GFR (CKD-EPI)NonAf (>60 ml/min/1.73 sqM) Glucose (74-99) mg/dL Calcium (8.4-10.2) mg/dL Magnesium (1.6-2.3) mg/dL Total Bilirubin (0.2-1.3) mg/dL AST (14-36) U/L ALT (4-34) U/L Alkaline Phosphatase (38-126) U/L Troponin I (0.000-0.034) ng/mL Total Protein (6.3-8.2) g/dL Albumin (3.5-5.0) g/dL Lipase (23-300) U/L Urine Color Yellow Urine Appearance Clear (Clear) Urine pH 8.5 H (5.0-8.0) Ur Specific [place] 1.018 (1.001-1.035) Urine Protein Trace H (Negative) Urine Glucose (UA) Negative (Negative) Urine Ketones 4+ H (Negative) Urine Blood Negative (Negative) Urine Nitrite Negative (Negative) Urine Bilirubin Negative (Negative) Urine Urobilinogen <2.0 (<2.0) mg/dL Ur Leukocyte Esterase Negative (Negative) 12/12/20 12/12/20 Range/Units 17:30 17:30 WBC (3.8-10.6) k/uL RBC (3.80-5.40) m/uL Hgb (11.4-16.0) gm/dL Hct (34.0-46.0) % MCV (80.0-100.0) fL MCH (25.0-35.0) pg MCHC (31.0-37.0) g/dL RDW (11.5-15.5) % Plt Count (150-450) k/uL MPV Neutrophils % % Lymphocytes % % Monocytes % % Eosinophils % % Basophils % % Neutrophils # (1.3-7.7) k/uL Lymphocytes # (1.0-4.8) k/uL Monocytes # (0-1.0) k/uL Eosinophils # (0-0.7) k/uL Basophils # (0-0.2) k/uL PT (9.0-12.0) sec INR (<1.2) APTT (22.0-30.0) sec Sodium 138 (137-145) mmol/L Potassium 3.8 (3.5-5.1) mmol/L Chloride 104 (98-107) mmol/L Carbon Dioxide 21 L (22-30) mmol/L Anion Gap 13 mmol/L BUN 16 (7-17) mg/dL Creatinine 0.62 (0.52-1.04) mg/dL Est GFR (CKD-EPI)AfAm >90 (>60 ml/min/1.73 sqM) Est GFR (CKD-EPI)NonAf >90 (>60 ml/min/1.73 sqM) Glucose 184 H (74-99) mg/dL Calcium 9.9 (8.4-10.2) mg/dL Magnesium 1.9 (1.6-2.3) mg/dL Total Bilirubin 0.6 (0.2-1.3) mg/dL AST 35 (14-36) U/L ALT 25 (4-34) U/L Alkaline Phosphatase 90 (38-126) U/L Troponin I <0.012 (0.000-0.034) ng/mL Total Protein 7.8 (6.3-8.2) g/dL Albumin 4.8 (3.5-5.0) g/dL Lipase 198 (23-300) U/L Urine Color Urine Appearance (Clear) Urine pH (5.0-8.0) Ur Specific [place] (1.001-1.035) Urine Protein (Negative) Urine Glucose (UA) (Negative) Urine Ketones (Negative) Urine Blood (Negative) Urine Nitrite (Negative) Urine Bilirubin (Negative) Urine Urobilinogen (<2.0) mg/dL Ur Leukocyte Esterase (Negative) Disposition Clinical Impression: SBO (small bowel obstruction) Disposition: ADMITTED IP TO THIS [facility] Condition: Stable Referrals: Nas Yi MD [Primary Care Provider] - 1-2 days
[2020-12-12] MEDS ORDERED: LORazepam 2 MG/ML INJ IV STA (19:21)
--- NOTE | 2020-12-12 21:03 | XR ---
EXAMINATION TYPE: XR chest 1V portable DATE OF EXAM: 12/12/2020 COMPARISON: NONE HISTORY: NG tube placement. TECHNIQUE: Single frontal view of the chest is obtained. FINDINGS: There is no focal air space opacity, pleural effusion, or pneumothorax seen. The cardiac silhouette size is within normal limits. The osseous structures are intact. There is redemonstratio n of an NG tube with tip overlying the gastric fundus. IMPRESSION: NG tube with tip overlying the stomach. Otherwise no acute process.
[2020-12-13] MEDS ORDERED: KETOROLAC 15 MG/ML 1 ML VIAL IVP PRN (00:28)
[2020-12-13] MEDS: LACTATED RINGERS 1,000 ML IV SCH ×3 (00:35→18:16)
[2020-12-13 08:49] LABS: Basophils % (A) 0 %; Eosinophils # (A) 0.1 k/uL (0-0.7); Eosinophils % (A) 1 %; HCT 37.2 % (34.0-46.0); HGB 12.5 gm/dL (11.4-16.0); Lymphocytes # (A) 1.2 k/uL (1.0-4.8); Lymphocytes % (A) 13 %; MCHC 33.6 g/dL (31.0-37.0); Mean Platelet Volume 8.5; Monocytes # (A) 0.7 k/uL (0-1.0); Monocytes % (A) 7 %; Neutrophils # (A) 7.6 k/uL (1.3-7.7); Neutrophils % (A) 78 %; Platelet Count 196 k/uL (150-450); RBC 3.92 m/uL (3.80-5.40); RDW 12.3 % (11.5-15.5); WBC 9.8 k/uL (3.8-10.6)
[2020-12-13 09:10] LABS: African American GFR (CKD) >90 (>60 ml/min/1.73 sqM); Anion Gap 9 mmol/L; Blood Urea Nitrogen 16 mg/dL (7-17); Calcium 8.9 mg/dL (8.4-10.2); Carbon Dioxide 26 mmol/L (22-30); Chloride 106 mmol/L (98-107); Glucose 97 mg/dL (74-99); Non-African American GFR(CKD) >90 (>60 ml/min/1.73 sqM); Potassium 3.8 mmol/L (3.5-5.1); Sodium 141 mmol/L (137-145)
--- NOTE | 2020-12-13 10:25 | P.GSHP ---
History of Present Illness H&P Date: 12/13/20 Chief Complaint: Abdominal pain, nausea vomiting This a 65-year-old female who presented to the emergency room. Patient states [place] [address] when she had severe abdominal pain nausea and vomiting. Patient was admitted to the hospital. She has a high-grade partial small bowel obstruction. Patient states that she's had 3 previous episodes of small bowel obstruction the last 6 months. Patient has previous history of laparoscopic ostectomy and endometriosis. Past Medical History Past Medical History: No Reported History History of Any Multi-Drug Resistant Organisms: None Reported Past Surgical History: Cholecystectomy Additional Past Surgical History / Comment(s): bladder sling 2013, partial thyroidectomy Past Psychological History: No Psychological Hx Reported Smoking Status: Never smoker Past Alcohol Use History: Occasional Past Drug Use History: None Reported Medications and Allergies Home Medications Medication Instructions Recorded Confirmed Type Multivitamins, Thera [Multivitamin 1 tab PO DAILY 08/06/17 12/12/20 History (formulary)] Calcium Carbonate [Calcium] 600 mg PO DAILY 12/12/20 12/12/20 History Famotidine [Pepcid] 40 mg PO DAILY 12/12/20 12/12/20 History Levothyroxine Sodium [Levoxyl] 125 mcg PO DAILY 12/12/20 12/12/20 History Loratadine [Claritin] 10 mg PO DAILY 12/12/20 12/12/20 History diphenhydrAMINE HCL [Benadryl] 25 mg PO HS 12/12/20 12/12/20 History Allergies Allergy/AdvReac Type Severity Reaction Status Date / Time doxycycline AdvReac headache & Verified 12/12/20 19:55 vomiting Surgical - Exam Vital Signs Temp Pulse Resp BP Pulse Ox 98.0 F 74 20 125/67 100 12/12/20 17:14 12/12/20 17:14 12/12/20 17:14 12/12/20 17:14 12/12/20 17:14 - General well developed, well nourished, moderate distress - Eyes PERRL - ENT normal pinna - Neck no masses - Respiratory normal expansion - Cardiovascular Rhythm: regular - Abdomen Tender throughout, no guarding Abdomen: soft, distended Results - Labs 12/13/20 08:32 12/13/20 08:32 Abnormal Lab Results - Last 24 Hours (Table) 0212/12/20 12/12/20 Range/Units 17:30 17:30 17:30 WBC 10.9 H (3.8-10.6) k/uL Neutrophils # 9.2 H (1.3-7.7) k/uL Carbon Dioxide 21 L (22-30) mmol/L Glucose 184 H (74-99) mg/dL Urine pH 8.5 H (5.0-8.0) Urine Protein Trace H (Negative) Urine Ketones 4+ H (Negative) Diabetes panel 12/12/20 12/13/20 Range/Units 17:30 08:32 Sodium 138 141 (137-145) mmol/L Potassium 3.8 3.8 (3.5-5.1) mmol/L Chloride 104 106 (98-107) mmol/L Carbon Dioxide 21 L 26 (22-30) mmol/L BUN 16 16 (7-17) mg/dL Creatinine 0.62 0.68 (0.52-1.04) mg/dL Glucose 184 H 97 (74-99) mg/dL Calcium 9.9 8.9 (8.4-10.2) mg/dL AST 35 (14-36) U/L ALT 25 (4-34) U/L Alkaline Phosphatase 90 (38-126) U/L Total Protein 7.8 (6.3-8.2) g/dL Albumin 4.8 (3.5-5.0) g/dL Calcium panel 12/12/20 12/13/20 Range/Units 17:30 08:32 Calcium 9.9 8.9 (8.4-10.2) mg/dL Albumin 4.8 (3.5-5.0) g/dL Pituitary panel 12/12/20 12/13/20 Range/Units 17:30 08:32 Sodium 138 141 (137-145) mmol/L Potassium 3.8 3.8 (3.5-5.1) mmol/L Chloride 104 106 (98-107) mmol/L Carbon Dioxide 21 L 26 (22-30) mmol/L BUN 16 16 (7-17) mg/dL Creatinine 0.62 0.68 (0.52-1.04) mg/dL Glucose 184 H 97 (74-99) mg/dL Calcium 9.9 8.9 (8.4-10.2) mg/dL Adrenal panel 12/12/20 12/13/20 Range/Units 17:30 08:32 Sodium 138 141 (137-145) mmol/L Potassium 3.8 3.8 (3.5-5.1) mmol/L Chloride 104 106 (98-107) mmol/L Carbon Dioxide 21 L 26 (22-30) mmol/L BUN 16 16 (7-17) mg/dL Creatinine 0.62 0.68 (0.52-1.04) mg/dL Glucose 184 H 97 (74-99) mg/dL Calcium 9.9 8.9 (8.4-10.2) mg/dL Total Bilirubin 0.6 (0.2-1.3) mg/dL AST 35 (14-36) U/L ALT 25 (4-34) U/L Alkaline Phosphatase 90 (38-126) U/L Total Protein 7.8 (6.3-8.2) g/dL Albumin 4.8 (3.5-5.0) g/dL - Imaging CT scan - abdomen: report reviewed (High-grade small bowel. The report reviewed by myself personally. I'm unsure if there is no internal hernia.) Assessment and Plan Assessment: High-grade small bowel traction. Patient will undergo exploratory laparotomy today.
[2020-12-13] MEDS ORDERED: IV FLUID CONTINUATION 1,000 ML IV ONE (12:02)
[2020-12-13] MEDS ORDERED: MIDAZOLAM 2 MG/2 ML VIAL IV ONE (12:31)
[2020-12-13] MEDS ORDERED: DEXAMETHASONE SOD PHOSPHATE 4 MG/ML 1 ML VIAL IV ONE (12:41)
[2020-12-13] MEDS ORDERED: ONDANSETRON 4 MG/2 ML VIAL IVP ONE (12:41)
[2020-12-13] MEDS ORDERED: PHENYLEPHRINE-0.9% NACL SYG 1,000 MCG/10 ML SYRINGE ONE (12:50)
[2020-12-13] MEDS ORDERED: fentaNYL (PF) 50 MCG/ML 2 ML AMP ONE (12:50)
[2020-12-13] MEDS ORDERED: SUCCINYLCHOLINE CHLORIDE 100 MG/5 ML SYR IV ONE (12:50)
[2020-12-13] MEDS ORDERED: MIDAZOLAM 2 MG/2 ML VIAL ONE (12:50)
[2020-12-13] MEDS ORDERED: NEOSTIGMINE 1 MG/ML 10 ML VIAL ONE (12:50)
[2020-12-13] MEDS ORDERED: ROCURONIUM 10 MG/ML (5 ML VIAL) IV ONE (12:50)
[2020-12-13] MEDS ORDERED: PROPOFOL 10 MG/ML 20 ML VIAL IV ONE (12:50)
[2020-12-13] MEDS ORDERED: GLYCOPYRROLATE 0.2 MG/ML 2 ML VIAL ONE (12:50)
[2020-12-13] MEDS ORDERED: LIDOCAINE 1% INJ 10MG/ML (20 ML MDV) ONE (12:50)
[2020-12-13] MEDS ORDERED: LACTATED RINGERS 1,000 ML IV ONE (13:17)
[2020-12-13] MEDS ORDERED: BENZOCAINE/MENTHOL LOZENG 1 EACH LOZENGE MUCOUS MEM PRN (13:43)
[2020-12-13] MEDS ORDERED: METOCLOPRAMIDE 5 MG/ML 2 ML VIAL IVP PRN (13:43)
--- NOTE | 2020-12-13 13:43 | P.OP ---
Date of Procedure: 12/13/20 Preoperative Diagnosis: Small bowel obstruction Postoperative Diagnosis: Small bowel obstruction due to closed loop obstruction Procedure(s) Performed: Small bowel resection Anesthesia: MIKKI Surgeon: Renan Long Estimated Blood Loss (ml): 5 Pathology: other (Small bowel) Condition: stable Disposition: PACU Description of Procedure: The patient's placed on the operative table in supine position. She received general anesthesia. Her abdomen was prepped and draped in usual sterile fashion. The abdomen was entered through a midline incision. Upon entering the midline the small bowel appeared to be dilated. The distal small bowel was collapsed. In the distal portion of the jejunum there appeared to be evidence of a closed loop obstruction. There was a questionable mucosal lesion at the site of obstruction which could be palpated through the bowel wall. There is also enlarged lymph node that was suspicious in the mesentery. At this point decided to perform a small bowel resection. The area the close of obstruction was transected with a GI stapler proximally distally and then using Enseal device the mesentery the bowel was divided. The suspicious lymph node was removed with the mesentery. A [id number] functional end-to-end stapled anastomosis created using MARYJO and TA staplers. 3-0 GI silk sutures used as a crotch stitch. The window in the mesentery was closed 3-0 GI silk suture. The abdomen was irrigated is no bleeding seen. There is no evidence of any further valve structure. The fascia was closed with looped #1 PDS suture. Skin was closed estela. Patient top she will was sent to recovery room stable condition.
[2020-12-13] MEDS ORDERED: HYDROmorphone 1 MG/ML 1 ML SYRINGE IVP PRN (13:44)
[2020-12-13] MEDS ORDERED: NALOXONE 0.4 MG/ML 1 ML VIAL IV PRN (13:49)
[2020-12-13] MEDS: ROPIVACAINE 250 MG, fentaNYL (PF) 625 MCG in SODIUM CHLORIDE 0.9% 188 ML EPIDURAL PRN ×2 (14:33→14:57)
[2020-12-13] MEDS: D5-0.45% NACL WITH KCL 20MEQ/L 1,000 ML IV SCH ×2 (15:56→23:35)
[2020-12-13] MEDS: HEPARIN SODIUM,PORCINE 5,000 UNIT/ML 1 ML VIAL SQ SCH ×2 (16:13→23:35)
--- NOTE | 2020-12-13 21:44 | P.CONS ---
History of Present Illness - Reason for Consult Consult date: 12/13/20 Medical management Requesting physician: Renan Long - Chief Complaint Abdominal pain, nausea vomiting - History of Present Illness This is a pleasant 65-year-old patient of Dr. Nas Yi. Patient yesterday morning was in [facility]. Developed abdominal pain progressively got worse afterward became rather severe. Started having nausea vomiting. She was drivi ng back home she pulled into a rest stop. Had to call EMS. Computed tomography scan of the abdomen did show high-grade partial small bowel obstruction. NG tube was placed. Patient was taken to the OR this afternoon by Dr. Long. The distal part of jejunum appeared to be evidence of a close to obstruction. He performed a small bowel resection. Suspicious lymph node was removed. Of [id number] functional end-to-end stapled anastomosis was carried out. Postprocedure patient has a NG tube in place. Abdominal binder. Some pain. Denies any cardiac history. 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 Occasional alcohol Family history: Reviewed, noncontributory to presentation Physical examination: VITAL SIGNS: 97.3, 57, 16, 127/80, 100% on 2 L GENERAL: BMI 20.8, laying in bed, awake. EYES: Pupils equal. Conjunctiva normal. HEENT: External appearance of nose and ears normal, oral cavity dry, NG tube to suction. NECK: JVD not raised; masses not palpable. HEART: First and second heart sounds are normal; no edema. LUNGS: Respiratory rate normal; clear to auscultation. ABDOMEN: Soft, tender, no guarding rigidity abdominal binder in place, liver spleen not palpable, no masses palpable. PSYCH: Alert and oriented x3; mood and affect normal. MUSCULAR skeletal: Evidence of OA especially in the hands NEUROLOGICAL: Cranial nerves grossly intact; no facial asymmetry, power and sensation grossly intact. LYMPHATICS: No lymph nodes palpable in the axilla and neck INVESTIGATIONS, reviewed in the clinical context: White count 10.9 hemoglobin 14.7 platelets 176 potassium 3.8 creatinine 0.62 Coronavirus [PCR]-not detected EKG tracing personally reviewed by me-sinus rhythm Chest x-ray film personally reviewed by me-lung allan clear Computed tomography scan of abdomen and pelvis- small bowel obstruction Assessment and plan: -Small bowel obstruction: The distal part of jejunum appeared to be evidence of a close to obstruction. He performed a small bowel resection. Suspicious lymph node was removed. Of [id number] functional end-to-end stapled anastomosis w as carried out. NG tube in place. Abdominal binder. -Primary osteoarthritis especially hands -Hypothyroid-was switched to Levoxyl to IV form -DVT prophylaxis and Venodyne boots Patient also has an epidural in place. IV fluids. NG tube. Subcu heparin for DVT prophylaxis. Thank you Dr. Long Past Medical History Past Medical History: No Reported History History of Any Multi-Drug Resistant Organisms: None Reported Past Surgical History: Cholecystectomy Additional Past Surgical History / Comment(s): bladder sling 2013, partial thyroidectomy Past Psychological History: No Psychological Hx Reported Smoking Status: Never smoker Past Alcohol Use History: Occasional Past Drug Use History: None Reported Medications and Allergies Home Medications Medication Instructions Recorded Confirmed Type Multivitamins, Thera [Multivitamin 1 tab PO DAILY 08/06/17 12/12/20 History (formulary)] Calcium Carbonate [Calcium] 600 mg PO DAILY 12/12/20 12/12/20 History Famotidine [Pepcid] 40 mg PO DAILY 12/12/20 12/12/20 History Levothyroxine Sodium [Levoxyl] 125 mcg PO DAILY 12/12/20 12/12/20 History Loratadine [Claritin] 10 mg PO DAILY 12/12/20 12/12/20 History diphenhydrAMINE HCL [Benadryl] 25 mg PO HS 12/12/20 12/12/20 History Allergies Allergy/AdvReac Type Severity Reaction Status Date / Time doxycycline AdvReac headache & Verified 12/12/20 19:55 vomiting morphine AdvReac HEADACHE Verified 12/13/20 11:55 Physical Exam Vitals: Vital Signs Temp Pulse Pulse Resp BP BP Pulse Ox 12/13/20 02:00 98.1 F 76 16 107/66 96 12/12/20 22:08 98.2 F 77 16 116/72 98 12/12/20 21:13 80 17 109/61 98 12/12/20 18:29 66 16 118/68 100 12/12/20 17:14 98.0 F 74 20 125/67 100 Intake and Output 12/12/20 12/13/20 12/13/20 22:59 06:59 14:59 Intake Total 1549 Output Total 620 130 Balance 929 -130 Intake: Intake, IV Titration 1549 Amount Lactated Ringers 1,000 ml 550 @ 125 mls/hr IV .Q8H AMOL Rx#:[id number] Sodium Chloride 0.9% 2, 999 000 ml @ 999 mls/hr IV . Q2H1M ONE Rx#:[id number] Output: Gastric Drainage 620 130 Other: # Voids 1 # Bowel Movements 1 Weight 56.699 kg Results CBC & Chem 7: 12/13/20 08:32 12/13/20 08:32 Labs: Abnormal Lab Results - Last 24 Hours (Table) 12/12/20 12/12/20 12/12/20 Range/Units 17:30 17:30 17:30 WBC 10.9 H (3.8-10.6) k/uL Neutrophils # 9.2 H (1.3-7.7) k/uL Carbon Dioxide 21 L (22-30) mmol/L Glucose 184 H (74-99) mg/dL Urine pH 8.5 H (5.0-8.0) Urine Protein Trace H (Negative) Urine Ketones 4+ H (Negative)
[2020-12-13 22:51] LABS: Basophils # (A) 0.04 X 10*3/uL (0.00-0.10); Basophils % (A) 0.4 %; Eosinophils # (A) 0.02 X 10*3/uL (0.04-0.35); Eosinophils % (A) 0.2 %; HCT 38.9 % (37.2-46.3); HGB 12.2 g/dL (12.0-15.0); Lymphocytes # (A) 0.79 X 10*3/uL (0.90-5.00); Lymphocytes % (A) 8.1 %; MCH 31.9 pg (27.0-32.0); MCHC 31.4 g/dL (32.0-37.0); MCV 101.8 fL (80.0-97.0); Mean Platelet Volume 12.2 fL (9.5-12.2); Monocytes % (A) 4.1 %; Neutrophils # (A) 8.43 X 10*3/uL (1.80-7.70); Neutrophils % (A) 86.9 %; Platelet Count 182 X 10*3/uL (140-440); RBC 3.82 X 10*6/uL (4.10-5.20); RDW 12.7 % (11.5-14.5); WBC 9.71 X 10*3/uL (4.50-10.00)
[2020-12-14] MEDS: LACTATED RINGERS 1,000 ML IV SCH ×3 (01:33→17:29)
[2020-12-14 01:58] LABS: African American GFR (CKD) 105.4 (60.0-200.0); Anion Gap 9.8 mmol/L (4.00-12.00); BUN/Creat Ratio 22.86 Ratio (12.00-20.00); Calcium 8.2 mg/dL (8.7-10.3); Carbon Dioxide 22.2 mmol/L (21.6-31.8); Non-African American GFR(CKD) 90.9 (60.0-200.0); Potassium 3.9 mmol/L (3.5-5.5)
--- NOTE | 2020-12-14 07:44 | P.PN ---
Progress Note - Text Progress Note Date: 12/14/20 ANESTHESIA POST OP VISIT/Pain Management Patient seen at 0715 am on 12/14/2020 She is post-op day #1 Exploratory Laparoscopy/lysis of adhesions/small bowel resection Epidural insitu and infusing at a rate of 4 ml/hr Patient reports a VAS of 6/10 but states this is tolerable. Says she is happy w ith her pain mangement. Denies any lower extremity weakness/numbness/paresthesias, fever/chills, pruritis and back pain. Epidural site dry and without erythema and tenderness Discussed with regarding increasing infusion rate of epidural solution as needed. Will continue to follow as indicated.
[2020-12-14] MEDS: D5-0.45% NACL WITH KCL 20MEQ/L 1,000 ML IV SCH ×3 (08:45→17:19)
[2020-12-14] MEDS: ALVIMOPAN 12 MG CAPSULE PO SCH ×2 (09:10→20:17)
[2020-12-14] MEDS: HEPARIN SODIUM,PORCINE 5,000 UNIT/ML 1 ML VIAL SQ SCH ×2 (09:10→15:51)
[2020-12-14 09:27] LABS: Basophils # (A) 0.1 k/uL (0-0.2); Basophils % (A) 1 %; Eosinophils # (A) 0.1 k/uL (0-0.7); Eosinophils % (A) 1 %; HCT 38.7 % (34.0-46.0); HGB 12.8 gm/dL (11.4-16.0); Lymphocytes # (A) 1.2 k/uL (1.0-4.8); Lymphocytes % (A) 13 %; MCH 32.4 pg (25.0-35.0); MCHC 33.2 g/dL (31.0-37.0); MCV 97.6 fL (80.0-100.0); Mean Platelet Volume 8.7; Monocytes # (A) 0.7 k/uL (0-1.0); Monocytes % (A) 8 %; Neutrophils % (A) 77 %; Platelet Count 171 k/uL (150-450); RBC 3.97 m/uL (3.80-5.40); RDW 12.5 % (11.5-15.5); WBC 9.1 k/uL (3.8-10.6)
[2020-12-14 09:38] LABS: African American GFR (CKD) >90 (>60 ml/min/1.73 sqM); Anion Gap 5 mmol/L; Blood Urea Nitrogen 12 mg/dL (7-17); Carbon Dioxide 26 mmol/L (22-30); Chloride 105 mmol/L (98-107); Glucose 109 mg/dL (74-99); Non-African American GFR(CKD) >90 (>60 ml/min/1.73 sqM); Potassium 4.2 mmol/L (3.5-5.1); Sodium 136 mmol/L (137-145)
--- NOTE | 2020-12-14 10:37 | P.PN ---
Subjective Progress Note Date: 12/14/20 CHIEF COMPLAINT: Small bowel obstruction HISTORY OF PRESENT ILLNESS: Patient is being followed for small bowel obstruction due to closed loop obstruction. She is postop day #1, status post small bowel resection. Patient is complaining of abdominal pain. She has epidural in place. The epidural has been increased. Patient has NG tube in place and has about 230ml output of greenish fluid. Patient does report that the NG tube is irritating her throat. She denies any nausea. Denies any flatus or BM. Afebrile. WBC 9.1 PHYSICAL EXAM: VITAL SIGNS: Reviewed. GENERAL: Well-developed in no acute distress. HEENT: No sclera icterus. Extraocular movements grossly intact. Moist buccal mucosa. Head is atraumatic, normocephalic. ABDOMEN: Soft. Distended. Incision site has minimal blood drainage noted. NEUROLOGIC: Alert and oriented. Cranial nerves II through XII grossly intact. ASSESSMENT: 1. Small bowel obstruction due to closed loop obstruction status post small bowel resection 2. Prior history of small bowel obstructions PLAN: -Keep patient nothing by mouth -Continue IV fluids -Continue epidural for pain control -Continue Dilaudid for breakthrough pain -Continue entereg -GI prophylaxis Protonix and DVT prophylaxis subcu heparin Physician Brim Shaper note has been reviewed by physician. Signing provider agrees with the documented findings, assessment, and plan of care. Objective - Vital Signs Vital signs: Vital Signs Temp 98.6 F 12/14/20 07:37 Pulse 90 12/14/20 07:37 Resp 17 12/14/20 07:37 BP 104/67 12/14/20 07:37 Pulse Ox 98 12/14/20 04:42 Intake & Output 12/13/20 12/14/20 12/14/20 18:59 06:59 18:59 Intake Total 2481 16 34.933 Output Total 455 Balance 2025 16 34.933 Intake: IV 1606 Intake, IV Titration 875 16 34.933 Amount D5-0.45% NaCl with KCl 500 20Meq/l 1,000 ml @ 125 mls/hr IV .Q8H AMOL Rx#: [id number] Lactated Ringers 1,000 ml 375 @ 125 mls/hr IV .Q8H AMOL Rx#:[id number] Ropivacaine 250 mg 16 34.933 fentaNYL (PF) 625 mcg In Sodium Chloride 0.9% 188 ml @ Per Protocol EPIDURAL .Q0M PRN Rx#: [id number] Output: Gastric Drainage 230 Urine 205 Estimated Blood Loss 20 Other: Voiding Method Toilet Indwelling Catheter # Voids 1 # Bowel Movements 1 - Labs CBC & Chem 7: 12/14/20 08:44 12/14/20 08:44 Labs: Abnormal Lab Results - Last 24 Hours (Table) 12/13/20 12/13/20 12/14/20 Range/Units 15:45 15:45 08:44 RBC 3.82 L (4.10-5.20) X 10*6/uL MCV 101.8 H (80.0-97.0) fL MCHC 31.4 L (32.0-37.0) g/dL Neutrophils # 8.43 H (1.80-7.70) X 10*3/uL Lymphocytes # 0.79 L (0.90-5.00) X 10*3/uL Eosinophils # 0.02 L (0.04-0.35) X 10*3/uL Sodium 136 L (137-145) mmol/L Chloride 111 H (96-109) mmol/L BUN/Creatinine Ratio 22.86 H (12.00-20.00) Ratio Glucose 109 H (74-99) mg/dL Calcium 8.2 L 8.0 L (8.7-10.3) mg/dL Microbiology - Last 24 Hours (Table) 12/12/20 19:13 Blood Culture - Preliminary Blood No Growth after 24 hours
[2020-12-14] MEDS ORDERED: BENZOCAINE SPRAY 1 CAN TOPICAL PRN (13:52)
[2020-12-14] MEDS: PANTOPRAZOLE 40 MG/10 ML VIAL IVP SCH (15:50)
[2020-12-14] MEDS: ROPIVACAINE 250 MG, fentaNYL (PF) 625 MCG in SODIUM CHLORIDE 0.9% 188 ML EPIDURAL PRN (17:17)
--- NOTE | 2020-12-14 22:37 | P.PN ---
Progress Note - Text Progress Note Date: 12/14/20 - Chief Complaint Abdominal pain, nausea vomiting Interval history This is a pleasant 65-year-old patient of Dr. Nas Yi. Patient yesterday morning was in [place] area. Developed abdominal pain progressively got worse afterward became rather severe. Started having nausea vomiting. She was driving back home she pulled into a rest stop. Had to call EMS. Computed tomography scan of the abdomen did show high-grade partial small bowel obstruction. NG tube was placed. Patient was taken to the OR this afternoon by Dr. Long. The distal part of jejunum appeared to be evidence of a close to obstruction. He performed a small bowel resection. Suspicious lymph node was removed. Of nzbf-[id number] functional end-to-end stapled anastomosis was carried out. Postprocedure patient has a NG tube in place. Abdominal binder. Denies any cardiac history. Today-sitting up in a chair. NG tube to suction. Abdominal binder. NG tube is really bothering her. Some abdominal discomfort. Epidural in place. No flatus. Review of systems: Was done for constitutional, cardiovascular, GI, pulmonary. relevant finding as above Active Medications Alvimopan (Alvimopan 12 Mg Capsule) 12 mg PO BID [facility] Stop: 12/20/20 21:01 Last Admin: 12/14/20 20:17 Dose: 12 mg Documented by: Benzocaine (Benzocaine [facility] 1 Can) 1 spray TOPICAL QID PRN PRN Reason: Skin Irritation Benzocaine/Menthol (Benzocaine/Menthol Lozeng 1 Each Lozenge) 1 each MUCOUS MEM Q1HR PRN PRN Reason: Sore Throat Last Admin: 12/14/20 08:34 Dose: 1 each Documented by: Heparin Sodium (Porcine) (Heparin Sodium,Porcine 5,000 Unit/Ml 1 Ml Vial) 5,000 unit SQ Q8HR [facility] Last Admin: 12/14/20 15:51 Dose: 5,000 unit Documented by: Hydromorphone HCl (Hydromorphone 1 Mg/Ml 1 Ml Syringe) 1 mg IVP Q3HR PRN PRN Reason: Pain Lactated Ringer's (Lactated Ringers) 1,000 mls @ 125 mls/hr IV .Q8H [facility] Last Admin: 12/14/20 17:29 Dose: Not Given Documented by: Potassium Chloride/Dextrose/Sod Cl (D5%-1/2ns-Kcl 20 Meq/L Iv Solution) 1,000 mls @ 125 mls/hr IV .Q8H [facility] Last Admin: 12/14/20 17:19 Dose: 125 mls/hr Documented by: Ropivacaine 250 mg/ Fentanyl Citrate 625 mcg/ Sodium Chloride 250 mls @ 0 mls/hr EPIDURAL .Q0M PRN; Protocol PRN Reason: Pain Control Last Admin: 12/14/20 17:17 Dose: 4 mls/hr Documented by: Metoclopramide HCl (Metoclopramide 5 Mg/Ml 2 Ml Vial) 10 mg IVP Q6HR PRN PRN Reason: Nausea and Vomiting Naloxone HCl (Naloxone 0.4 Mg/Ml 1 Ml Vial) 0.2 mg IV Q2M PRN PRN Reason: Opioid Reversal Naloxone HCl (Naloxone 0.4 Mg/Ml 1 Ml Vial) 0.2 mg IV Q2M PRN PRN Reason: Opioid Reversal Ondansetron HCl (Ondansetron 4 Mg/2 Ml Vial) 4 mg IVP Q8HR PRN PRN Reason: Nausea And Vomiting Pantoprazole Sodium (Pantoprazole 40 Mg/10 Ml Vial) 40 mg IVP DAILY [facility] Last Admin: 12/14/20 15:50 Dose: 40 mg Documented by: Past medical history to include: Hypothyroid, fleeting rash, arthritis in the joints 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 Occasional alcohol Family history: Reviewed, noncontributory to presentation Physical examination: VITAL SIGNS: 98.2, 62, 16, 140s over 65, 98% room air GENERAL: Sitting up in a chair, with a NG tube suction, epidural EYES: Pupils equal. Conjunctiva normal. HEENT: External appearance of nose and ears normal, oral cavity dry, NG tube to suction. NECK: JVD not raised; masses not palpable. HEART: First and second heart sounds are normal; no edema. LUNGS: Respiratory rate normal; clear to auscultation. ABDOMEN: Soft, tender, no bowel sounds, no guarding rigidity abdominal binder in place, liver spleen not palpable, no masses palpable. PSYCH: Alert and oriented x3; mood and affect normal. MUSCULAR skeletal: Evidence of OA especially in the hands INVESTIGATIONS, reviewed in the clinical context: 5 pre-11th: White count 9.1 hemoglobin 12.8 potassium 4.2 creatinine 0.56 White count 10.9 hemoglobin 14.7 platelets 176 potassium 3.8 creatinine 0.62 Coronavirus [PCR]-not detected EKG tracing personally reviewed by me-sinus rhythm Chest x-ray film personally reviewed by me-lung allan clear Computed tomography scan of abdomen and pelvis- small bowel obstruction Assessment and plan: -Small bowel obstruction: The distal part of jejunum appeared to be evidence of a close to obstruction. He performed a small bowel resection. Suspicious lymph node was removed. Of [id number] functional end-to-end stapled anastomosis was carried out. NG tube in place. Abdominal binder. -Primary osteoarthritis especially hands -Hypothyroid-was switched to Levoxyl to IV form -DVT prophylaxis and Venodyne boots Patient also has an epidural in place. IV fluids. NG tube. Subcu heparin for DVT prophylaxis. Thank you Dr. Long
[2020-12-15] MEDS: HEPARIN SODIUM,PORCINE 5,000 UNIT/ML 1 ML VIAL SQ SCH ×4 (00:43→23:12)
[2020-12-15] MEDS: LACTATED RINGERS 1,000 ML IV SCH ×2 (00:46→19:00)
[2020-12-15] MEDS: D5-0.45% NACL WITH KCL 20MEQ/L 1,000 ML IV SCH ×4 (05:14→23:13)
--- NOTE | 2020-12-15 08:28 | P.PN ---
Progress Note - Text Date: 12/15/2020 Time: 7:13 The patient is status post, exploratory lap, lysis of adhesions, postoperative day number 2. The patient has no complaints of nausea vomiting. The patient does not complain of any lower extremity numbness or weakness. The epidural is running at 5 mL per hour. VAS 2-3-10. The patient has a headache this morning. The headache is not postural. Does not seem to be related to the epidural. Treatment can be provided for this by the service. The epidural will be maintained and adjusted as needed.
[2020-12-15] MEDS: PANTOPRAZOLE 40 MG/10 ML VIAL IVP SCH (09:36)
[2020-12-15] MEDS: ACETAMINOPHEN TAB 325 MG TAB PO PRN ×3 (09:48→20:14)
[2020-12-15] MEDS: ALVIMOPAN 12 MG CAPSULE PO SCH ×2 (09:48→20:15)
--- NOTE | 2020-12-15 10:50 | P.PN ---
Subjective Progress Note Date: 12/15/20 CHIEF COMPLAINT: Small bowel obstruction HISTORY OF PRESENT ILLNESS: Patient is being followed for small bowel obstruction due to closed loop obstruction. She is postop day #2, status post small bowel resection. Patient reports that her abdominal pain is controlled with the epidural. NG tube removed last night. She denies any nausea or vomiting. She is complaining of feeling lightheaded and warm with a headache this morning. Denies any flatus or BM. She sitting up at bedside chair. Afebrile. Adequate urine output. Labs are pending PHYSICAL EXAM: VITAL SIGNS: Reviewed. GENERAL: Well-developed in no acute distress. HEENT: No sclera icterus. Extraocular movements grossly intact. Moist buccal mucosa. Head is atraumatic, normocephalic. ABDOMEN: Soft. Distended. Incision site has minimal blood drainage noted. Patient has abdominal binder NEUROLOGIC: Alert and oriented. Cranial nerves II through XII grossly intact. ASSESSMENT: 1. Small bowel obstruction due to closed loop obstruction status post small bowel resection 2. Prior history of small bowel obstructions PLAN: -Keep patient nothing by mouth -Increase IV fluids back to 125 mL per hour -Continue epidural for pain control -Continue entereg -Add Tylenol when necessary for headache -Encourage patient to increase activity and use incentive spirometer -GI prophylaxis Protonix and DVT prophylaxis subcu heparin Physician Iphone Developer note has been reviewed by physician. Signing provider agrees with the documented findings, assessment, and plan of care. Objective - Vital Signs Vital signs: Vital Signs Temp 97.6 F 12/15/20 09:33 Pulse 96 12/15/20 10:12 Resp 17 12/15/20 10:12 BP 121/78 12/15/20 09:33 Pulse Ox 94 L 12/15/20 09:33 Intake & Output 12/14/20 12/15/20 12/15/20 18:59 06:59 18:59 Intake Total 70.550 9.8 Output Total 1175 Balance 70.550 -1165.2 Intake: Intake, IV Titration 70.550 9.8 Amount Ropivacaine 250 mg 70.550 9.8 fentaNYL (PF) 625 mcg In Sodium Chloride 0.9% 188 ml @ Per Protocol EPIDURAL .Q0M PRN Rx#: [id number] Output: Urine 1175 Uretheral ([place]vey) 575 Other: Voiding Method Indwelling Catheter Indwelling Catheter Indwelling Catheter - Labs CBC & Chem 7: 12/15/20 05:52 12/14/20 08:44 Labs: Microbiology - Last 24 Hours (Table) 12/12/20 19:13 Blood Culture - Preliminary Blood No Growth after 48 hours
[2020-12-15 11:04] LABS: Basophils % (A) 0 %; Eosinophils # (A) 0.4 k/uL (0-0.7); Eosinophils % (A) 6 %; HCT 35.5 % (34.0-46.0); HGB 11.5 gm/dL (11.4-16.0); Lymphocytes % (A) 14 %; MCH 31.5 pg (25.0-35.0); MCHC 32.5 g/dL (31.0-37.0); MCV 96.7 fL (80.0-100.0); Mean Platelet Volume 9.9; Monocytes # (A) 0.5 k/uL (0-1.0); Monocytes % (A) 7 %; Neutrophils # (A) 5.5 k/uL (1.3-7.7); Neutrophils % (A) 73 %; Platelet Count 179 k/uL (150-450); RBC 3.67 m/uL (3.80-5.40); RDW 12.9 % (11.5-15.5); WBC 7.5 k/uL (3.8-10.6)
[2020-12-15 11:30] VITALS: BMI 20.7
[2020-12-15 14:27] LABS: African American GFR (CKD) 110.9 (60.0-200.0); Anion Gap 6.9 mmol/L (4.00-12.00); BUN/Creat Ratio 13.33 Ratio (12.00-20.00); Calcium 7.8 mg/dL (8.7-10.3); Carbon Dioxide 26.1 mmol/L (21.6-31.8); Non-African American GFR(CKD) 95.7 (60.0-200.0); Potassium 4.2 mmol/L (3.5-5.5)
--- NOTE | 2020-12-15 21:32 | P.PN ---
Progress Note - Text Progress Note Date: 12/15/20 - Chief Complaint Abdominal pain, nausea vomiting Interval history This is a pleasant 65-year-old patient of Dr. Nas Yi. Patient yesterday morning was in [place] area. Developed abdominal pain progressively got worse afterward became rather severe. Started having nausea vomiting. She was driving back home she pulled into a rest stop. Had to call EMS. Computed tomography scan of the abdomen did show high-grade partial small bowel obstruction. NG tube was placed. Patient was taken to the OR this afternoon by Dr. Long. The distal part of jejunum appeared to be evidence of a close to obstruction. He performed a small bowel resection. Suspicious lymph node was removed. Of [id number] functional end-to-end stapled anastomosis was carried out. Postprocedure patient has a NG tube in place. Abdominal binder. Denies any cardiac history. Today-sitting up in a chair. NG tube disconnected. On epidural. No flatus. Review of systems: Was done for constitutional, cardiovascular, GI, pulmonary. relevant finding as above Active Medications Acetaminophen (Acetaminophen Tab 325 Mg Tab) 650 mg PO Q4HR PRN PRN Reason: Fever and/ or Pain Last Admin: 12/15/20 20:14 Dose: 650 mg Documented by: Alvimopan (Alvimopan 12 Mg Capsule) 12 mg PO BID [facility] Stop: 12/20/20 21:01 Last Admin: 12/15/20 20:15 Dose: 12 mg Documented by: Benzocaine (Benzocaine [place] 1 Can) 1 spray TOPICAL QID PRN PRN Reason: Skin Irritation Benzocaine/Menthol (Benzocaine/Menthol Lozeng 1 Each Lozenge) 1 each MUCOUS MEM Q1HR PRN PRN Reason: Sore Throat Last Admin: 12/14/20 08:34 Dose: 1 each Documented by: Heparin Sodium (Porcine) (Heparin Sodium,Porcine 5,000 Unit/Ml 1 Ml Vial) 5,000 unit SQ Q8HR [facility] Last Admin: 12/15/20 15:35 Dose: 5,000 unit Documented by: Hydromorphone HCl (Hydromorphone 1 Mg/Ml 1 Ml Syringe) 1 mg IVP Q3HR PRN PRN Reason: Pain Potassium Chloride/Dextrose/Sod Cl (D5%-1/2ns-Kcl 20 Meq/L Iv Solution) 1,000 mls @ 125 mls/hr IV .Q8H [facility] Last Admin: 12/15/20 15:35 Dose: 125 mls/hr Documented by: Ropivacaine 250 mg/ Fentanyl Citrate 625 mcg/ Sodium Chloride 250 mls @ 0 mls/hr EPIDURAL .Q0M PRN; Protocol PRN Reason: Pain Control Last Infusion: 12/15/20 19:51 Dose: 1 mls/hr Documented by: Metoclopramide HCl (Metoclopramide 5 Mg/Ml 2 Ml Vial) 10 mg IVP Q6HR PRN PRN Reason: Nausea and Vomiting Naloxone HCl (Naloxone 0.4 Mg/Ml 1 Ml Vial) 0.2 mg IV Q2M PRN PRN Reason: Opioid Reversal Naloxone HCl (Naloxone 0.4 Mg/Ml 1 Ml Vial) 0.2 mg IV Q2M PRN PRN Reason: Opioid Reversal Ondansetron HCl (Ondansetron 4 Mg/2 Ml Vial) 4 mg IVP Q8HR PRN PRN Reason: Nausea And Vomiting Last Admin: 12/15/20 16:36 Dose: 4 mg Documented by: Pantoprazole Sodium (Pantoprazole 40 Mg/10 Ml Vial) 40 mg IVP DAILY [facility] Last Admin: 12/15/20 09:36 Dose: 40 mg Documented by: Past medical history to include: Hypothyroid, fleeting rash, arthritis in the joints 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 Occasional alcohol Family history: Reviewed, noncontributory to presentation Physical examination: VITAL SIGNS: 97.6, 90, 16, 122/76, 96% room air GENERAL: Sitting up in a chair, NG tube discontinued. Epidural in place EYES: Pupils equal. Conjunctiva normal. HEENT: External appearance of nose and ears normal, oral cavity dry, NG tube to suction. NECK: JVD not raised; masses not palpable. HEART: First and second heart sounds are normal; no edema. LUNGS: Respiratory rate normal; clear to auscultation. ABDOMEN: Soft, tender, no bowel sounds, no guarding rigidity abdominal binder in place, liver spleen not palpable, PSYCH: Alert and oriented x3; mood and affect normal. MUSCULAR skeletal: Evidence of OA especially in the hands INVESTIGATIONS, reviewed in the clinical context: December 15: WBC 7.5 hemoglobin 11.5 potassium 4.2 creatinine 0.6 December 14: White count 9.1 hemoglobin 12.8 potassium 4.2 creatinine 0.56 White count 10.9 hemoglobin 14.7 platelets 176 potassium 3.8 creatinine 0.62 Coronavirus [PCR]-not detected EKG tracing personally reviewed by me-sinus rhythm Chest x-ray film personally reviewed by me-lung allan clear Computed tomography scan of abdomen and pelvis- small bowel obstruction Assessment and plan: -Small bowel obstruction: The distal part of jejunum appeared to be evidence of a close to obstruction. He performed a small bowel resection. Suspicious lymph node was removed. Of [id number] functional end-to-end stapled anastomosis was carried out. NG tube discontinued. Abdominal binder. On epidural -Primary osteoarthritis especially hands -Hypothyroid-was switched to Levoxyl to IV form -DVT prophylaxis and Venodyne boots Continue IV fluids. Discussed with patient Thank you Dr. Long
[2020-12-16] MEDS: ACETAMINOPHEN TAB 325 MG TAB PO PRN ×3 (03:39→20:55)
[2020-12-16] MEDS: ALVIMOPAN 12 MG CAPSULE PO SCH ×2 (08:18→20:56)
[2020-12-16] MEDS: PANTOPRAZOLE 40 MG/10 ML VIAL IVP SCH (08:18)
[2020-12-16] MEDS: HEPARIN SODIUM,PORCINE 5,000 UNIT/ML 1 ML VIAL SQ SCH ×2 (08:21→17:08)
[2020-12-16] MEDS: D5-0.45% NACL WITH KCL 20MEQ/L 1,000 ML IV SCH ×2 (08:22→21:02)
--- NOTE | 2020-12-16 11:35 | P.PN ---
Progress Note - Text Progress Note Date: 12/16/20 Patient had a large bowel movement. She is passing gas. On exam her vital signs are stable. Abdomen soft. Status post small bowel resection. Pathology still pending. Patient will have her diet advanced to full liquid diet. She'll have her IV fluids drop to 75 mL an hour
--- NOTE | 2020-12-16 21:05 | P.PN ---
Progress Note - Text 12/16/20 0439 65-year-old female status post exploratory lap by Dr. Long. Patient has an epidural catheter and the solution has been doing off at this time. Patient has a VAS of 1 at rest, no motor or sensory deficits noted plan to DC the epidural, nurse notified
--- NOTE | 2020-12-16 22:15 | P.PN ---
Progress Note - Text Progress Note Date: 12/16/20 - Chief Complaint Abdominal pain, nausea vomiting Interval history This is a pleasant 65-year-old patient of Dr. Nas Yi. Patient yesterday morning was in [place] area. Developed abdominal pain progressively got worse afterward became rather severe. Started having nausea vomiting. She was driving back home she pulled into a rest stop. Had to call EMS. Computed tomography scan of the abdomen did show high-grade partial small bowel obstruction. NG tube was placed. Patient was taken to the OR this afternoon by Dr. Long. The distal part of jejunum appeared to be evidence of a close to obstruction. He performed a small bowel resection. Suspicious lymph node was removed. Of [id number]-hils functional end-to-end stapled anastomosis was carried out. Postprocedure patient has a NG tube in place. Abdominal binder. Denies any cardiac history. NG tube disconnected. Epidural removed. Today-patient on clear liquids. Had a bowel movement. Up in the hallway. Some abdominal pain. No nausea vomiting. Review of systems: Was done for constitutional, cardiovascular, GI, pulmonary. relevant finding as above Active Medications Acetaminophen (Acetaminophen Tab 325 Mg Tab) 650 mg PO Q4HR PRN PRN Reason: Fever and/ or Pain Last Admin: 12/16/20 20:55 Dose: 650 mg Documented by: Alvimopan (Alvimopan 12 Mg Capsule) 12 mg PO BID [facility] Stop: 12/20/20 21:01 Last Admin: 12/16/20 20:56 Dose: 12 mg Documented by: Benzocaine (Benzocaine [place] 1 Can) 1 spray TOPICAL QID PRN PRN Reason: Skin Irritation Benzocaine/Menthol (Benzocaine/Menthol Lozeng 1 Each Lozenge) 1 each MUCOUS MEM Q1HR PRN PRN Reason: Sore Throat Last Admin: 12/14/20 08:34 Dose: 1 each Documented by: Heparin Sodium (Porcine) (Heparin Sodium,Porcine 5,000 Unit/Ml 1 Ml Vial) 5,000 unit SQ Q8HR [facility] Last Admin: 12/16/20 17:08 Dose: 5,000 unit Documented by: Hydromorphone HCl (Hydromorphone 1 Mg/Ml 1 Ml Syringe) 1 mg IVP Q3HR PRN PRN Reason: Pain Last Admin: 12/16/20 21:09 Dose: 1 mg Documented by: Potassium Chloride/Dextrose/Sod Cl (D5%-1/2ns-Kcl 20 Meq/L Iv Solution) 1,000 mls @ 75 mls/hr IV .[id number] [facility] Last Admin: 12/16/20 21:02 Dose: 75 mls/hr Documented by: Ropivacaine 250 mg/ Fentanyl Citrate 625 mcg/ Sodium Chloride 250 mls @ 0 mls/hr EPIDURAL .Q0M PRN; Protocol PRN Reason: Pain Control Last Infusion: 12/15/20 19:51 Dose: 1 mls/hr Documented by: Metoclopramide HCl (Metoclopramide 5 Mg/Ml 2 Ml Vial) 10 mg IVP Q6HR PRN PRN Reason: Nausea and Vomiting Naloxone HCl (Naloxone 0.4 Mg/Ml 1 Ml Vial) 0.2 mg IV Q2M PRN PRN Reason: Opioid Reversal Ondansetron HCl (Ondansetron 4 Mg/2 Ml Vial) 4 mg IVP Q8HR PRN PRN Reason: Nausea And Vomiting Last Admin: 12/15/20 16:36 Dose: 4 mg Documented by: Pantoprazole Sodium (Pantoprazole 40 Mg/10 Ml Vial) 40 mg IVP DAILY [facility] Last Admin: 12/16/20 08:18 Dose: 40 mg Documented by: Past medical history to include: Hypothyroid, fleeting rash, arthritis in the joints 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 Conjunctiva normal. HEENT: External appearance of nose and ears normal, oral cavity dry, NG tube to suction. NECK: JVD not raised; masses not palpable. HEART: First and second heart sounds are normal; no edema. LUNGS: Respiratory rate normal; clear to auscultation. ABDOMEN: Soft, tender, no guarding rigidity abdominal binder in place, liver spleen not palpable, PSYCH: Alert and oriented x3; mood and affect normal. MUSCULAR skeletal: Evidence of OA especially in the hands INVESTIGATIONS, reviewed in the clinical context: December 15: WBC 7.5 hemoglobin 11.5 potassium 4.2 creatinine 0.6 February 11: White count 9.1 hemoglobin 12.8 potassium 4.2 creatinine 0.56 White count 10.9 hemoglobin 14.7 platelets 176 potassium 3.8 creatinine 0.62 Coronavirus [PCR]-not detected EKG tracing personally reviewed by me-sinus rhythm Chest x-ray film personally reviewed by me-lung allan clear Computed tomography scan of abdomen and pelvis- small bowel obstruction Assessment and plan: -Small bowel obstruction: The distal part of jejunum appeared to be evidence of a close to obstruction. He performed a small bowel resection. Suspicious lymph node was removed. Of [id number] functional end-to-end stapled anastomosis was carried out. NG tube discontinued. Abdominal binder. Epidural- discontinued. Had a bowel movement -Primary osteoarthritis especially hands -Hypothyroid-was switched to Levoxyl to IV form -DVT prophylaxis and Venodyne boots Continue IV fluids. Advance to full liquid as this afternoon by surgery. Discussed with the patient. Thank you Dr. Long
[2020-12-17] MEDS: HEPARIN SODIUM,PORCINE 5,000 UNIT/ML 1 ML VIAL SQ SCH ×3 (01:00→17:06)
[2020-12-17] MEDS: D5-0.45% NACL WITH KCL 20MEQ/L 1,000 ML IV SCH ×2 (01:01→13:35)
[2020-12-17] MEDS: ACETAMINOPHEN TAB 325 MG TAB PO PRN ×4 (03:38→19:49)
[2020-12-17] MEDS: PANTOPRAZOLE 40 MG/10 ML VIAL IVP SCH (08:01)
--- NOTE | 2020-12-17 12:59 | P.PN ---
Progress Note - Text Progress Note Date: 12/17/20 Patient feels better. She's had multiple bowel movements. On exam vital signs are stable. Incisions clean dry tach. Status post small bowel resection for small bowel obstruction. Patient will have her diet advanced. Despite discharged home tomorrow.
--- NOTE | 2020-12-17 21:39 | P.PN ---
Progress Note - Text Progress Note Date: 12/17/20 - Chief Complaint Abdominal pain, nausea vomiting Interval history This is a pleasant 65-year-old patient of Dr. Nas Yi. Patient yesterday morning was in [place] area. Developed abdominal pain progressively got worse afterward became rather severe. Started having nausea vomiting. She was driving back home she pulled into a rest stop. Had to call EMS. Computed tomography scan of the abdomen did show high-grade partial small bowel obstruction. NG tube was placed. Patient was taken to the OR this afternoon by Dr. Long. The distal part of jejunum appeared to be evidence of a close to obstruction. He performed a small bowel resection. Suspicious lymph node was removed. Of [id number] functional end-to-end stapled anastomosis was carried out. Postprocedure patient has a NG tube in place. Abdominal binder. Denies any cardiac history. NG tube disconnected. Epidural removed. Today-doing better. Has been up in the hallway. Advance to full liquid diet. Had a bowel movement. Pain control. Review of systems: Was done for constitutional, cardiovascular, GI, pulmonary. relevant finding as above Active Medications Acetaminophen (Acetaminophen Tab 325 Mg Tab) 650 mg PO Q4HR PRN PRN Reason: Fever and/ or Pain Last Admin: 12/17/20 19:49 Dose: 650 mg Documented by: Benzocaine (Benzocaine [place] 1 Can) 1 spray TOPICAL QID PRN PRN Reason: Skin Irritation Benzocaine/Menthol (Benzocaine/Menthol Lozeng 1 Each Lozenge) 1 each MUCOUS MEM Q1HR PRN PRN Reason: Sore Throat Last Admin: 12/14/20 08:34 Dose: 1 each Documented by: Heparin Sodium (Porcine) (Heparin Sodium,Porcine 5,000 Unit/Ml 1 Ml Vial) 5,000 unit SQ Q8HR [facility] Last Admin: 12/17/20 17:06 Dose: 5,000 unit Documented by: Hydromorphone HCl (Hydromorphone 1 Mg/Ml 1 Ml Syringe) 1 mg IVP Q3HR PRN PRN Reason: Pain Last Admin: 12/16/20 21:09 Dose: 0.5 mg Documented by: Potassium Chloride/Dextrose/Sod Cl (D5%-1/2ns-Kcl 20 Meq/L Iv Solution) 1,000 mls @ 75 mls/hr IV [id number] Last Admin: 12/17/20 13:35 Dose: 75 mls/hr Documented by: Ropivacaine 250 mg/ Fentanyl Citrate 625 mcg/ Sodium Chloride 250 mls @ 0 mls/hr EPIDURAL .Q0M PRN; Protocol PRN Reason: Pain Control Last Infusion: 12/15/20 19:51 Dose: 1 mls/hr Documented by: Metoclopramide HCl (Metoclopramide 5 Mg/Ml 2 Ml Vial) 10 mg IVP Q6HR PRN PRN Reason: Nausea and Vomiting Naloxone HCl (Naloxone 0.4 Mg/Ml 1 Ml Vial) 0.2 mg IV Q2M PRN PRN Reason: Opioid Reversal Ondansetron HCl (Ondansetron 4 Mg/2 Ml Vial) 4 mg IVP Q8HR PRN PRN Reason: Nausea And Vomiting Last Admin: 12/15/20 16:36 Dose: 4 mg Documented by: Pantoprazole Sodium (Pantoprazole 40 Mg/10 Ml Vial) 40 mg IVP [facility]ILY [facility] Last Admin: 12/17/20 08:01 Dose: 40 mg Documented by: Past medical history to include: Hypothyroid, fleeting rash, arthritis in the joints 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 Conjunctiva normal. HEENT: External appearance of nose and ears normal, oral cavity dry, NG tube to suction. NECK: JVD not raised; masses not palpable. HEART: First and second heart sounds are normal; no edema. LUNGS: Respiratory rate normal; clear to auscultation. ABDOMEN: Soft, tender, no guarding rigidity abdominal binder in place, liver spleen not palpable, PSYCH: Alert and oriented x3; mood and affect normal. MUSCULAR skeletal: Evidence of OA especially in the hands INVESTIGATIONS, reviewed in the clinical context: December 15: WBC 7.5 hemoglobin 11.5 potassium 4.2 creatinine 0.6 December 14: White count 9.1 hemoglobin 12.8 potassium 4.2 creatinine 0.56 White count 10.9 hemoglobin 14.7 platelets 176 potassium 3.8 creatinine 0.62 Coronavirus [PCR]-not detected EKG tracing personally reviewed by me-sinus rhythm Chest x-ray film personally reviewed by me-lung allan clear Computed tomography scan of abdomen and pelvis- small bowel obstruction Assessment and plan: -Small bowel obstruction: The distal part of jejunum appeared to be evidence of a close to obstruction. He performed a small bowel resection. Suspicious lymph node was removed. Of sqzd-wq-gkaw functional end-to-end stapled anastomosis was carried out. NG tube discontinued. Abdominal binder. Epidural- discontinued. Had a bowel movement. Diet advanced as per surgery to regular this evening -Primary osteoarthritis especially hands -Hypothyroid: Continue Synthroid -DVT prophylaxis and Venodyne boots Stop IV fluids. Diet advanced to regular this evening by Dr. Long. Discussed with patient Thank you Dr. Long
[2020-12-18] MEDS: HEPARIN SODIUM,PORCINE 5,000 UNIT/ML 1 ML VIAL SQ SCH ×2 (00:22→08:40)
[2020-12-18] MEDS: ACETAMINOPHEN TAB 325 MG TAB PO PRN ×3 (01:57→12:57)
[2020-12-18 05:10] VITALS: TEMP 98.3
[2020-12-18] MEDS ORDERED: LEVOTHYROXINE 50 MCG TAB PO SCH (06:30)
[2020-12-18] MEDS ORDERED: FAMOTIDINE 20 MG TAB PO SCH (09:00)
[2020-12-18] MEDS ORDERED: CALCIUM CARBONATE 500 MG CHEWABLE PO SCH (09:00)
[2020-12-18] MEDS ORDERED: MULTIVITAMINS, THERA 1 EACH TAB PO SCH (09:00)
[2020-12-18 12:27] VITALS: BP 143/78; PULSE 70; RESP 17
--- NOTE | 2020-12-18 13:14 | P.DS ---
Providers Date of admission: 12/12/20 19:08 Expected date of discharge: 12/18/20 Attending physician: Renan Long Consults: 12/12/20 19:07 Consult Physician Routine Consulting Provider: Ryan Best Consult Reason/Comments: SBO - medical management Do you want consulting provider notified?: Yes Primary care physician: Nas [facility] Course: Discharge diagnosis 1. Small bowel obstruction due to closed loop obstruction status post small bowel resection 2. Prior history of small bowel obstructions Hospital course This is a 65-year-old female who presented to the emergency room. Patient [place] [address] when she had severe abdominal pain nausea and vomiting. Patient was admitted to the hospital. She has a high-grade partial small bowel obstruction. Patient states that she's had 3 previous episodes of small bowel obstruction the last 6 months. Patient had a small bowel obstruction due to closed loop obstruction status post small bowel resection. She tolerated surgery well. Her pain is controlled. She is tolerating diet. She is having bowel movements. She is ambulating. She is afebrile. She is stable for discharge. Please refer to chart for any further details. [employer] Supervisor note has been reviewed by physician. Signing provider agrees with the documented findings, assessment, and plan of care. Patient Condition at Discharge: Stable Plan - Discharge Summary New Discharge Prescriptions: New Acetaminophen Tab [Tylenol Tab] 650 mg PO Q4H PRN #30 tablet PRN Reason: Pain Continue Multivitamins, Thera [Multivitamin (formulary)] 1 tab PO DAILY diphenhydrAMINE HCL [Benadryl] 25 mg PO HS Loratadine [Claritin] 10 mg PO DAILY Famotidine [Pepcid] 40 mg PO DAILY Levothyroxine Sodium [Levoxyl] 125 mcg PO DAILY Calcium Carbonate [Calcium] 600 mg PO DAILY Discharge Medication List Multivitamins, Thera [Multivitamin (formulary)] 1 tab PO DAILY 08/06/17 [History] Calcium Carbonate [Calcium] 600 mg PO DAILY 12/12/20 [History] Famotidine [Pepcid] 40 mg PO DAILY 12/12/20 [History] Levothyroxine Sodium [Levoxyl] 125 mcg PO DAILY 12/12/20 [History] Loratadine [Claritin] 10 mg PO DAILY 12/12/20 [History] diphenhydrAMINE HCL [Benadryl] 25 mg PO HS 12/12/20 [History] Acetaminophen Tab [Tylenol Tab] 650 mg PO Q4H PRN #30 tablet 12/18/20 [Rx] Follow up Appointment(s)/Referral(s): Nas Yi MD [Primary Care Provider] - 1-2 days Renan Long MD [STAFF PHYSICIAN] - 1 Week Activity/Diet/Wound Care/Special Instructions: No lifting over 10 pounds You may shower. No soaking or tub baths for 2 weeks Very light activity until you are reevaluated at your follow up appointment with your surgeon Discharge Disposition: HOME SELF-CARE
--- NOTE | 2020-12-20 09:22 | CDI ---
Documentation Clarification Form Date: 12/20/2020 09:08:00 AM From: Tasia Machuca Phone: If you have a question about this query, please contact Dinorah Dwyer Director Employee Safety And Health at [phone] between 8am and 5pm. Admit Date: 12/12/2020 07:08:00 PM Patient Name: Petra Tony Visit Number: [id number] Discharge Date: 12/18/2020 03:07:00 PM ATTENTION: The Clinical Documentation Specialists (CDI) and [facility] Coding Staff appreciate your assistance in clarifying documentation. Please respond to the clarification below the line at the bottom and electronically sign. The CDI & [facility] Coding staff will review the response and follow-up if needed. Please note: Queries are made part of the Legal Health Record. If you have any questions, please contact the author of this message via ITS. Dr. 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 Please clarify if you agree with pathology. Documentation states: Partial SBO Patient history/risk factors: recurrent bowel obstructions Clinical Indicators: Treatment: excision of ileum and jejunum. In your professional opinion, do you agree with the pathology report specifying neuroendocrine tumor carcinoid tumor mets to 1 lymph node? Yes No Other (please specify) Unable to determine I agree MTDD
== END 2020-12-18 15:07 | disposition home or self-care (01) | DRG 330 ==
LOC: EC 17:08 → 5NMEDONC 19:08
PROVIDERS: ADMIT Surgery; ATTEND Surgery
PROC: 0D9670Z Drainage of Stomach with Drainage Device, Via Natural or Artificial Opening (ICD-10-PCS; principal; 2020-12-13 11:00)
PROC: 0DBA0ZZ Excision of Jejunum, Open Approach (ICD-10-PCS; principal; 2020-12-13 11:00)
PROC: 07BB0ZX Excision of Mesenteric Lymphatic, Open Approach, Diagnostic (ICD-10-PCS; principal; 2020-12-13 11:00)
PROC: 0DBB0ZZ Excision of Ileum, Open Approach (ICD-10-PCS; principal; 2020-12-13 11:00)
DX: C7A.011 Malignant carcinoid tumor of the jejunum (principal); C7B.01 Secondary carcinoid tumors of distant lymph nodes; K56.690 Other partial intestinal obstruction; E89.0 Postprocedural hypothyroidism; Z20.822 Contact with and (suspected) exposure to COVID-19; Z90.49 Acquired absence of other specified parts of digestive tract; Z88.1 Allergy status to other antibiotic agents; Z88.5 Allergy status to narcotic agent; M19.042 Primary osteoarthritis, left hand; M19.041 Primary osteoarthritis, right hand; Z79.899 Other long term (current) drug therapy; Z79.890 Hormone replacement therapy
CPT/HCPCS: 36415; 71045; 74177; 80048; 80053; 81003; 83690; 83735; 84484; 85025; 85610; 85730; 87040; 87635; 88309; 88341; 88342; 93005; 96365; 96367; 96372; 96375; 99285

== ENCOUNTER → 2020-12-22 | Outpatient (CLI) | payer BC, MEDICARE ==
[2020-12-22 20:28] LABS: African American GFR (CKD) 110.9 (60.0-200.0); Albumin 4.2 g/dL (3.80-4.90); Anion Gap 6.6 mmol/L (4.00-12.00); BUN/Creat Ratio 21.67 Ratio (12.00-20.00); Calcium 8.5 mg/dL (8.7-10.3); Carbon Dioxide 27.4 mmol/L (21.6-31.8); Globulin 2.1 g/dL (1.6-3.3); Non-African American GFR(CKD) 95.7 (60.0-200.0); Total Bilirubin 0.3 mg/dL (0.3-1.2); Total Protein 6.3 g/dL (6.2-8.2)
[2020-12-22 21:42] LABS: Basophils # (A) 0.05 X 10*3/uL (0.00-0.10); Basophils % (A) 0.6 %; Eosinophils # (A) 0.28 X 10*3/uL (0.04-0.35); Eosinophils % (A) 3.2 %; HGB 11.5 g/dL (12.0-15.0); Lymphocytes # (A) 1.46 X 10*3/uL (0.90-5.00); Lymphocytes % (A) 16.5 %; MCH 31.8 pg (27.0-32.0); MCHC 31.9 g/dL (32.0-37.0); MCV 99.4 fL (80.0-97.0); Mean Platelet Volume 10.7 fL (9.5-12.2); Monocytes # (A) 0.65 X 10*3/uL (0.20-1.00); Monocytes % (A) 7.4 %; Neutrophils # (A) 6.37 X 10*3/uL (1.80-7.70); Platelet Count 395 X 10*3/uL (140-440); RBC 3.62 X 10*6/uL (4.10-5.20); RDW 13.1 % (11.5-14.5); WBC 8.84 X 10*3/uL (4.50-10.00)
[2020-12-22 23:04] LABS: Erythrocyte Sedimentation Rate 35 mm/Hr (0-30)
== END | disposition home or self-care (01) ==
LOC: LABWHC1 14:17
PROVIDERS: ATTEND Family Medicine
DX: K56.609 Unspecified intestinal obstruction, unspecified as to partial versus complete obstruction (principal)
CPT/HCPCS: 36415; 80053; 85025; 85652

== ENCOUNTER → 2021-02-19 | Outpatient (CLI) | payer BC ==
--- NOTE | 2021-02-20 08:50 | MM ---
Reason for exam: screening (asymptomatic). Last mammogram was performed 1 year and 6 months ago. History: Patient is postmenopausal. Family history of breast cancer in maternal aunt at age 40 and breast cancer in paternal aunt at age 40. Took estrogen for 4 months. Physical Findings: A clinical breast exam by your physician is recommended on an annual basis and results should be correlated with mammographic findings. MG 3D Screening Mammo W/Cad Bilateral CC and MLO view(s) were taken. Prior study comparison: August 31, 2019, bilateral MG 3d screening mammo w/cad. August 03, 2018, right breast MG 3d work up w/cad RT. The breast tissue is heterogeneously dense. This may lower the sensitivity of mammography. There are benign appearing round calcifications bilaterally. There is no discrete abnormality. ASSESSMENT: Benign, BI-RAD 2 RECOMMENDATION: Routine screening mammogram of both breasts in 1 year.
== END | disposition home or self-care (01) ==
LOC: RADMAMWWP 11:05
PROVIDERS: ATTEND Family Medicine
DX: Z12.31 Encounter for screening mammogram for malignant neoplasm of breast (principal); Z78.0 Asymptomatic menopausal state; Z80.3 Family history of malignant neoplasm of breast
CPT/HCPCS: 77063; 77067

== ENCOUNTER → 2021-02-21 | Outpatient (CLI) | payer BC ==
--- NOTE | 2021-02-21 10:05 | US ---
EXAMINATION TYPE: US kidneys/renal and bladder DATE OF EXAM: 02/21/2021 COMPARISON: US & CT CLINICAL HISTORY: D41.02 Left renal mass. F/U left renal mass EXAM MEASUREMENTS: Right Kidney: 9.5 x 3.9 x 4.7 cm Left Kidney: 11.6 x 5.1 x 4.1 cm Right Kidney: Cyst= 3.6 x 3.7 x 3.9 cm slightly smaller in size when compared to prev Left Kidney: Echogenic, solid lesion upper pole= 2.2 x 1.7 x 2.2 cm slightly increased in size when c ompared to prev/ Cyst= 2.3 x 2.2 x 2.5 cm similar in size when compared to prev Bladder: wnl Bilateral Jets seen: Yes There is no evidence for hydronephrosis at this point in time. No nephrolithiasis is seen. The urin anne marie bladder is anechoic. Bilateral ureteral jets are seen. IMPRESSION: Enlarging solid lesion upper pole left kidney. CT is recommended for further evaluation.
== END | disposition home or self-care (01) ==
LOC: RADUSWWP 09:27
PROVIDERS: ATTEND Urology
DX: N28.9 Disorder of kidney and ureter, unspecified (principal)
CPT/HCPCS: 76770

== ENCOUNTER → 2022-04-03 | Outpatient (CLI) | payer BC ==
--- NOTE | 2022-04-04 11:29 | MM ---
Reason for Exam: Screening (asymptomatic). Last mammogram was performed 1 year(s) and 2 month(s) ago. Patient History: Menarche at age 14. First Full-Term at age 26. Postmenopausal. Estrogen for 4 months. Paternal aunt had breast cancer, age 40. Maternal aunt had breast cancer, age 40. Risk Values: Guerita 5 year model risk: 1.7%. NCI Lifetime model risk: 6.1%. Prior Study Comparison: 08/03/2018 Right Diagnostic Mammogram, [facility]. 08/31/2019 Bilateral Screening Mammogram, [facility]. 02/19/2021 Bilateral Screening Mammogram, [facility]. Tissue Density: The breast tissue is heterogeneously dense. This may lower the sensitivity of mammography. Findings: Analyzed By CAD. No significant changes when compared with prior studies. Stable loosely grouped calcifications central posterior right breast. Overall Assessment: Negative, BI-RAD 1 Management: Screening Mammogram of both breasts in 1 year. Patient should continue monthly self breast exams. This exam should not preclude additional followup of suspicious palpable abnormalities. Electronically signed and approved by: Luis Beck M.D. Radiologist
== END | disposition home or self-care (01) ==
LOC: RADMAMWWP 10:58
PROVIDERS: ATTEND Family Medicine
DX: Z12.31 Encounter for screening mammogram for malignant neoplasm of breast (principal); Z78.0 Asymptomatic menopausal state; Z80.3 Family history of malignant neoplasm of breast
CPT/HCPCS: 77063; 77067

== ENCOUNTER → 2023-05-13 | Outpatient (CLI) | payer BC ==
[2023-05-13 14:05] VITALS: BP 136/77; PULSE 69; RESP 16; TEMP 97.8
--- NOTE | 2023-05-13 15:04 | P.HPOB ---
History of Present Illness H&P Date: 05/13/23 Chief Complaint: The patient is here for her routine gynecologic exam and ma mmogram. This is a 67-year-old with an LMP of 2009. She is here to reestablish with this office. She was last seen here on 05/27/2017. She is without gynecologic complaints and denies any postmenopausal bleeding. Review of Systems The patient's weight has been stable over the last year. She denies respiratory, cardiac, or G.I. problems. Past Medical History Additional Past Medical History / Comment(s): Neuroendocrine tumor with resulting bowel obstruction 2020 (seeing Dr. Gonzalez). 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 History of Any Multi-Drug Resistant Organisms: None Reported Past Surgical History: Cholecystectomy Additional Past Surgical History / Comment(s): bladder sling 2013, partial thyroidectomy. Partial bowel resection for obstruction 2020. Abdominal Incisional hernia repair 2021. 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 - Past Family History Mother Additional Family Medical History / Comment(s): Multiple sclerosis. . Father Additional Family Medical History / Comment(s): . Heart valve problem. Paternal aunt had breast cancer. Another paternal aunt had uterine cancer. Medications and Allergies Home Medications Medication Instructions Recorded Confirmed Type Multivitamins, Thera [Multivitamin 1 tab PO DAILY 08/06/17 05/13/23 History (formulary)] Calcium Carbonate [Calcium] 600 mg PO DAILY 12/12/20 05/13/23 History Levothyroxine Sodium [Levoxyl] 125 mcg PO DAILY 12/12/20 05/13/23 History Acetaminophen Tab [Tylenol Tab] 650 mg PO Q4H PRN #30 tablet 12/18/20 05/13/23 Rx Allergies Allergy/AdvReac Type Severity Reaction Status Date / Time doxycycline AdvReac headache & Verified 05/13/23 14:00 vomiting morphine AdvReac HEADACHE Verified 05/13/23 14:00 Exam Vital Signs Temp Pulse Resp BP Pulse Ox 05/13/23 14:01 97.8 F 69 16 136/77 98 Intake and Output 05/12/23 05/13/23 05/13/23 22:59 06:59 14:59 Other: Weight 56.245 kg Height 5 feet 2 inches, weight 124 pounds, BMI 22.7. This is a well-developed well-nourished white female who is alert and oriented times 3 in no acute distress. HEENT: Within normal limits. NECK: Supple without mass or thyromegaly. CHEST AND LUNGS: Clear to auscultation. HEART: Regular rate and rhythm. BREASTS: Are without mass or discharge. AXILLARY EXAM: Negative for adenopathy. BACK: Negative for CVA tenderness. ABDOMEN: Soft, nontender, without palpable masses. PELVIC EXAM: Normal external genitalia with mild atrophy. Cervix and vagina appear normal with mild atrophy. There is no unusual discharge. There is no evidence of prolapse. The uterus is midposition, nongravid size and nontender. There are no palpable adnexal masses or tenderness. RECTAL EXAM: Rectovaginal exam is negative for mass or tenderness and is negative for occult blood. EXTREMITIES: Nontender. IMPRESSION: 1. 67-year-old menopausal female with normal gynecologic exam. PLAN: 1. Pap smear was performed. She had a normal Pap smear on 05/27/2017. We will continue Pap smears screening until we have had 3 negative Pap smears within a 10 year period. 2. Self breast awareness was discussed with the patient. We have also discussed symptoms associated with inflammatory breast cancer. 3. Screening mammogram will be done today. 4. Osteoporosis prevention was discussed. I have stressed the importance of adequate calcium, vitamin D and regular exercise. Recommended amounts of calcium and vitamin D were also discussed. She states she had a bone density test done through her PCP at that office. She states it was normal in February 2023. 5. The patient was advised to return in 1-2 years for her well woman examination.
--- NOTE | 2023-05-14 13:55 | MM ---
Reason for Exam: Screening (asymptomatic). Last mammogram was performed 1 year(s) and 1 month(s) ago. Patient History: Menarche at age 14. First Full-Term at age 26. Postmenopausal. Estrogen for 4 months. Paternal aunt had breast cancer, age 40. Risk Values: Guerita 5 year model risk: 1.7%. NCI Lifetime model risk: 5.9%. Prior Study Comparison: 08/31/2019 Bilateral Screening Mammogram, [facility]. 02/19/2021 Bilateral Screening Mammogram, [facility]. 04/03/2022 Bilateral MG 3D screening mammo w/cad, [facility]. Tissue Density: The breast tissue is heterogeneously dense. This may lower the sensitivity of mammography. Analyzed By CAD. Overall Assessment: Benign, BI-RAD 2 Management: Screening Mammogram of both breasts in 1 year. Electronically signed and approved by: Kingston Michelle D.O. Radiologis
== END ==
LOC: WWCWWP 13:54
PROVIDERS: ATTEND Obstetrics & Gynecology
DX: Z12.31 Encounter for screening mammogram for malignant neoplasm of breast (principal); Z01.419 Encounter for gynecological examination (general) (routine) without abnormal findings; Z80.3 Family history of malignant neoplasm of breast; Z88.5 Allergy status to narcotic agent; Z88.1 Allergy status to other antibiotic agents; Z90.49 Acquired absence of other specified parts of digestive tract
CPT/HCPCS: 77063; 77067

== ENCOUNTER → 2024-08-12 | Outpatient (CLI) | payer BC ==
--- NOTE | 2024-08-16 09:11 | MM ---
Reason for Exam: Screening (asymptomatic). Last mammogram was performed 1 year(s) and 3 month(s) ago. Patient History: Menarche at age 14. First Full-Term at age 26. Postmenopausal. Estrogen for 4 months. Paternal aunt had breast cancer, age 40. Maternal aunt had breast cancer. Risk Values: Guerita 5 year model risk: 1.7%. NCI Lifetime model risk: 5.4%. Prior Study Comparison: 02/19/2021 Bilateral Screening Mammogram, [facility]. 04/03/2022 Bilateral MG 3D screening mammo w/cad, [facility]. 05/13/2023 Bilateral MG screening mammo w CAD, [facility]. Tissue Density: There are scattered areas of fibroglandular density. Findings: Analyzed By CAD. Right breast: There is no suspicious group of microcalcifications or new suspicious mass. Left breast: There is no suspicious group of microcalcifications or new suspicious mass. Overall Assessment: Negative, BI-RAD 1 Management: Screening Mammogram of both breasts in [address] [facility] will attempt to contact patient to return for supplemental views and ultrasound if indicated. Patient should continue monthly self-breast exams. A clinical breast exam by your physician is recommended on an annual basis. This exam should not preclude additional follow-up of suspicious palpable abnormalities. Note on Guerita scores and lifetime risk: 1. A Guerita score greater than 3% is considered moderate risk. If this is the case, consider specialist referral to assess eligibility for a risk reducing agent. 2. If overall lifetime risk for the development of breast cancer is 20% or higher, the patient may qualify for future screening with alternating mammogram and breast MRI. [facility], , 08/16/2024 9:08 AM. Electronically signed and approved by: Samson Davis DO
== END | disposition home or self-care (01) ==
LOC: RADMAMWWP 13:59
PROVIDERS: ATTEND Family Medicine
CPT/HCPCS: 77063; 77067

== ENCOUNTER → 2025-02-10 | Outpatient (CLI) | payer BC ==
--- NOTE | 2025-02-11 10:23 | PE ---
EXAMINATION TYPE: PET CT fusion skull to thigh DATE OF EXAM: 02/10/2025 CLINICAL INDICATION:Female, 69 years old with history of D3A.011 LEFTY CARCINOID TUMOR; TECHNIQUE: Following the intravenous administration of 5.37 mCi of Ga-68 DOTATATE, whole body image s are performed from the skull base to the Mid thigh. Images are reviewed on the computer in the cor onal, axial, and sagittal planes. Reconstructed rotating images are created on independent workstati on and reviewed on the computer. A non-contrast CT is performed in conjunction with the PET scan. CT DLP: 250 mGycm, Automated exposure control for dose reduction was used. COMPARISON: CT 12/12/2020, PET/CT None, MRI: None FINDINGS: Mediastinal SUV mean is 0.67. Hepatic parenchyma SUV mean is 7.0. SKULL BASE AND NECK: * Enlarged left thyroid gland with diffuse uptake of radiotracer max SUV 11.34. * Physiologic uptake within the parotid glands and pituitary. Which is normal biodistribution. CHEST, MEDIASTINUM, AND HILAR REGION: No suspicious radiotracer activity. ABDOMEN AND PELVIS: No suspicious radiotracer activity. Extensive physiologic uptake within the kidneys spleen and throughout the bowel. MUSCULOSKELETAL STRUCTURES: No suspicious radiotracer activity. OTHER CT: Large left thyroid lobe which extends on a spiral mediastinum.e left renal cyst measuring u p to 28 mm right renal cyst measuring up to 42 mm. The gallbladder surgically absent. Postsurgical ch anges to the bowel and left upper quadrant. Additional left renal cyst measuring 21 mm. IMPRESSION: 1. No suspicious uptake to suggest neuroendocrine tumor. 2. Mild uptake within the thyroid gland further evaluation to rule out underlying malignancy is caren mmended with thyroid ultrasound. Findings favor multinodular goiter. 3. Uptake within the pituitary gland related frontal and pituitary adenoma [facility], , 02/11/2025 10:20 AM
== END | disposition home or self-care (01) ==
LOC: RADPETMAIN 14:56
PROVIDERS: ATTEND Internal Medicine Hematology & Oncology
DX: D3A.0 Benign carcinoid tumors (principal); D35.2 Benign neoplasm of pituitary gland; N28.1 Cyst of kidney, acquired
CPT/HCPCS: 78815; A9587